=== PATIENT | female | born 1930 | race Caucasian/White ===

== ENCOUNTER 2018-01-22 18:05 | Inpatient (IN) | payer MEDICARE, OTHER, BC ==
[2018-01-22] MEDS: SODIUM CHLORIDE 0.9% 1L BAG IV* (20:44)
[2018-01-22] MEDS: morphine 4 MG/ML VIAL IV (20:44)
[2018-01-22] MEDS: ONDANSETRON 4 MG INJ IV (20:44)
[2018-01-22 20:55] LABS: ADD MAN DIFF? NO
[2018-01-22 20:57] LABS: BASOPHILS % 0.4 % (0.0-2.0); EOSINOPHILS # 0.1 10^3/ul (0.0-0.5); EOSINOPHILS % 1.3 % (0.0-7.0); HEMATOCRIT 35.9 % (37.0-47.0); HEMOGLOBIN 11.3 g/dl (12.0-16.0); LYMPHOCYTES # 2.8 10^3/ul (0.8-2.9); LYMPHOCYTES % 33.8 % (15.0-51.0); MEAN CORPUSCULAR HEMOGLOBIN 29.9 pg (29.0-33.0); MEAN CORPUSCULAR HGB CONC 31.5 g/dl (32.0-37.0); MEAN PLATELET VOLUME 12.4 fl (7.4-10.4); MONOCYTE # 0.8 10^3/ul (0.3-0.9); MONOCYTES % 9.3 % (0.0-11.0); NEUTROPHIL # 4.5 10^3/ul (1.6-7.5); PLATELET COUNT 183 10^3/UL (140-415); RED BLOOD COUNT 3.78 10^6/ul (4.20-5.40); RED CELL DISTRIBUTION WIDTH 14.7 % (11.5-14.5)
[2018-01-22 20:57] LABS: WHITE BLOOD COUNT 8.2 10^3/ul (4.8-10.8)
[2018-01-22 21:15] LABS: LACTIC ACID 1.1 mmol/L (0.5-2.0)
[2018-01-22 21:18] LABS: ALANINE AMINOTRANSFERASE 17 IU/L (13-69); ALBUMIN 4.1 g/dl (3.3-4.9); ALBUMIN/GLOBULIN RATIO 1.07; ALKALINE PHOSPHATASE 140 IU/L (42-121); ANION GAP 15 (8-16); ASPARTATE AMINO TRANSFERASE 24 IU/L (15-46); BILIRUBIN,INDIRECT 0.3 mg/dl (0-1.1); BILIRUBIN,TOTAL 0.3 mg/dl (0.2-1.3); BLOOD UREA NITROGEN 22 mg/dl (7-20); CALCIUM 8.6 mg/dl (8.4-10.2); CARBON DIOXIDE 27 mmol/L (21-31); CHLORIDE 99 mmol/L (97-110); CREATININE 1.17 mg/dl (0.44-1.00); GLUCOSE 108 mg/dl (70-220); LIPASE 141 U/L (23-300); POTASSIUM 4.1 mmol/L (3.5-5.1); SODIUM 137 mmol/L (135-144); TOTAL PROTEIN 7.9 g/dl (6.1-8.1)
[2018-01-22 21:26] LABS: INR 1.13; PROTIME 14.7 Sec (11.9-14.9); PT RATIO 1.1
[2018-01-22 21:27] LABS: PARTIAL THROMBOPLASTIN TIME 39.3 Sec (25.0-35.0); TROPONIN-I 0.017 ng/ml (0.00-0.12)
[2018-01-22] MEDS: SOD CHLORIDE 0.9% 100 ML (22:41)
[2018-01-22] MEDS: IODIXANOL LOCM 100 ML BTL (22:42)
[2018-01-22 23:17] LABS: LACTIC ACID 0.9 mmol/L (0.5-2.0)
[2018-01-23] MEDS ORDERED: ACETAMINOPHEN 325 MG TAB PO
[2018-01-23] MEDS ORDERED: ONDANSETRON 4 MG INJ IV
[2018-01-23 02:55] LABS: LACTIC ACID 0.7 mmol/L (0.5-2.0)
[2018-01-23 05:39] LABS: ADD MAN DIFF? NO
[2018-01-23 05:43] LABS: BASOPHILS % 0.3 % (0.0-2.0); EOSINOPHILS # 0.1 10^3/ul (0.0-0.5); EOSINOPHILS % 1.4 % (0.0-7.0); HEMOGLOBIN 9.9 g/dl (12.0-16.0); LYMPHOCYTES # 1.8 10^3/ul (0.8-2.9); LYMPHOCYTES % 27.6 % (15.0-51.0); MEAN CORPUSCULAR HEMOGLOBIN 30.5 pg (29.0-33.0); MEAN CORPUSCULAR HGB CONC 31.9 g/dl (32.0-37.0); MEAN CORPUSCULAR VOLUME 95.4 fl (82.0-101.0); MEAN PLATELET VOLUME 11.9 fl (7.4-10.4); MONOCYTE # 0.7 10^3/ul (0.3-0.9); MONOCYTES % 10.3 % (0.0-11.0); NEUTROPHILS % 59.9 % (39.0-77.0); RED BLOOD COUNT 3.25 10^6/ul (4.20-5.40); RED CELL DISTRIBUTION WIDTH 14.6 % (11.5-14.5)
[2018-01-23 05:43] LABS: WHITE BLOOD COUNT 6.6 10^3/ul (4.8-10.8)
[2018-01-23 05:54] LABS: PLATELET COUNT 134 10^3/UL (140-415); POSITIVE DIFF @See below
[2018-01-23 06:04] LABS: ALANINE AMINOTRANSFERASE 18 IU/L (13-69); ALBUMIN 3.3 g/dl (3.3-4.9); ALBUMIN/GLOBULIN RATIO 1.03; ALKALINE PHOSPHATASE 112 IU/L (42-121); ANION GAP 16 (8-16); ASPARTATE AMINO TRANSFERASE 22 IU/L (15-46); BILIRUBIN,INDIRECT 0.2 mg/dl (0-1.1); BILIRUBIN,TOTAL 0.2 mg/dl (0.2-1.3); BLOOD UREA NITROGEN 18 mg/dl (7-20); CALCIUM 7.8 mg/dl (8.4-10.2); CARBON DIOXIDE 22 mmol/L (21-31); CHLORIDE 108 mmol/L (97-110); CREATININE 0.99 mg/dl (0.44-1.00); GLUCOSE 72 mg/dl (70-220); POTASSIUM 3.8 mmol/L (3.5-5.1); SODIUM 142 mmol/L (135-144); TOTAL PROTEIN 6.5 g/dl (6.1-8.1)
[2018-01-23] MEDS: FUROSEMIDE 20 MG TAB PO (06:09)
[2018-01-23] MEDS: PANTOPRAZOLE (EC) 40 MG TAB PO (06:09)
[2018-01-23] MEDS: LEVOTHYROXINE 100 MCG TAB PO (06:10)
[2018-01-23] MEDS: LEVETIRACETAM 500 MG TAB PO ×4 (10:08→21:43)
[2018-01-23] MEDS: RALOXIFENE 60 MG TAB PO (10:08)
[2018-01-23] MEDS: ASPIRIN (EC) 81 MG TAB PO (10:08)
[2018-01-23] MEDS: PHENYTOIN (25 MG/ML PO SYG) PO ×3 (10:08→22:05)
[2018-01-23] MEDS: AMIODARONE 200 MG TAB PO (10:12)
[2018-01-23] MEDS: LISINOPRIL 10 MG TAB PO (10:12)
[2018-01-23] MEDS: morphine 2 MG INJ IV ×3 (13:25→22:03)
[2018-01-23] MEDS: ATORVASTATIN 10 MG TAB PO (21:43)
[2018-01-24] MEDS: morphine 2 MG INJ IV ×4 (06:25→20:30)
[2018-01-24] MEDS: PANTOPRAZOLE (EC) 40 MG TAB PO (06:26)
[2018-01-24] MEDS: LEVOTHYROXINE 100 MCG TAB PO (06:26)
[2018-01-24] MEDS: FUROSEMIDE 20 MG TAB PO (06:26)
[2018-01-24 06:48] LABS: PARTIAL THROMBOPLASTIN TIME 35.9 Sec (25.0-35.0)
[2018-01-24 07:20] LABS: CARCINOEMBRYONIC ANTIGEN 13.5 ng/ml (0.0-5.0)
[2018-01-24 09:23] LABS: IMMUNOGLOBULIN A 236 mg/dl (70-400); IMMUNOGLOBULIN G 1483 mg/dl (700-1600); IMMUNOGLOBULIN M 133 mg/dl (40-230)
[2018-01-24] MEDS: ASPIRIN (EC) 81 MG TAB PO (09:48)
[2018-01-24] MEDS: RALOXIFENE 60 MG TAB PO (09:48)
[2018-01-24] MEDS: LEVETIRACETAM 500 MG TAB PO ×4 (09:49→20:31)
[2018-01-24] MEDS: AMIODARONE 200 MG TAB PO (09:51)
[2018-01-24] MEDS: LISINOPRIL 10 MG TAB PO (09:51)
[2018-01-24] MEDS: PHENYTOIN (25 MG/ML PO SYG) PO ×3 (09:51→20:31)
[2018-01-24] MEDS: CEFTRIAXONE 1 GM/50 ML (PMX) 50 ML IVPB (16:27)
[2018-01-24] MEDS: ATORVASTATIN 10 MG TAB PO (20:31)
[2018-01-25] MEDS: FUROSEMIDE 20 MG TAB PO (05:46)
[2018-01-25] MEDS: PANTOPRAZOLE (EC) 40 MG TAB PO (05:46)
[2018-01-25] MEDS: LEVOTHYROXINE 100 MCG TAB PO (05:47)
[2018-01-25] MEDS: morphine 2 MG INJ IV ×4 (06:13→18:24)
[2018-01-25 07:01] LABS: PROTEIN, TOTAL 6.9 g/dL (6.1-8.1)
[2018-01-25] MEDS: LEVETIRACETAM 500 MG TAB PO ×4 (08:39→20:28)
[2018-01-25] MEDS: ASPIRIN (EC) 81 MG TAB PO (08:39)
[2018-01-25] MEDS: RALOXIFENE 60 MG TAB PO (08:40)
[2018-01-25] MEDS: PHENYTOIN (25 MG/ML PO SYG) PO ×3 (08:40→20:28)
[2018-01-25] MEDS: LISINOPRIL 10 MG TAB PO (08:42)
[2018-01-25] MEDS: AMIODARONE 200 MG TAB PO (08:43)
[2018-01-25] MEDS: CEFTRIAXONE 1 GM/50 ML (PMX) 50 ML IVPB (15:51)
[2018-01-25] MEDS: MAGNESIUM HYDROXIDE 30ML CUP PO (17:26)
[2018-01-25] MEDS: DOCUSATE SODIUM 100 MG CAP PO (20:28)
[2018-01-25] MEDS: ACETAMINOPHEN 325 MG TAB PO (20:28)
[2018-01-25] MEDS: ATORVASTATIN 10 MG TAB PO (20:28)
[2018-01-25] MEDS: DEXTROSE 5%-0.45% NACL 1,000 ML IV (21:30)
[2018-01-26] MEDS: HYDROCODONE/APAP (5/325) TAB PO ×3 (02:02→19:21)
[2018-01-26] MEDS: morphine 2 MG INJ IV ×4 (05:29→20:31)
[2018-01-26 05:35] LABS: ADD MAN DIFF? NO
[2018-01-26] MEDS: PANTOPRAZOLE (EC) 40 MG TAB PO (05:35)
[2018-01-26] MEDS: LEVOTHYROXINE 100 MCG TAB PO (05:36)
[2018-01-26] MEDS: FUROSEMIDE 20 MG TAB PO (05:36)
[2018-01-26 05:38] LABS: WHITE BLOOD COUNT 7.4 10^3/ul (4.8-10.8)
[2018-01-26 05:38] LABS: BASOPHILS % 0.1 % (0.0-2.0); EOSINOPHILS # 0.2 10^3/ul (0.0-0.5); EOSINOPHILS % 2.7 % (0.0-7.0); HEMATOCRIT 31.2 % (37.0-47.0); LYMPHOCYTES # 1.6 10^3/ul (0.8-2.9); LYMPHOCYTES % 21.2 % (15.0-51.0); MEAN CORPUSCULAR HEMOGLOBIN 30.1 pg (29.0-33.0); MEAN CORPUSCULAR HGB CONC 32.1 g/dl (32.0-37.0); MEAN PLATELET VOLUME 12.7 fl (7.4-10.4); MONOCYTE # 0.8 10^3/ul (0.3-0.9); MONOCYTES % 10.1 % (0.0-11.0); NEUTROPHIL # 4.8 10^3/ul (1.6-7.5); NEUTROPHILS % 65.5 % (39.0-77.0); PLATELET COUNT 143 10^3/UL (140-415); RED BLOOD COUNT 3.32 10^6/ul (4.20-5.40); RED CELL DISTRIBUTION WIDTH 14.3 % (11.5-14.5)
[2018-01-26 05:53] LABS: INR 1.32; PROTIME 16.6 Sec (11.9-14.9); PT RATIO 1.3
[2018-01-26 06:17] LABS: ANION GAP 14 (8-16); BLOOD UREA NITROGEN 25 mg/dl (7-20); CARBON DIOXIDE 27 mmol/L (21-31); CHLORIDE 102 mmol/L (97-110); CREATININE 1.02 mg/dl (0.44-1.00); GLUCOSE 125 mg/dl (70-220); POTASSIUM 4.1 mmol/L (3.5-5.1); SODIUM 139 mmol/L (135-144)
[2018-01-26] MEDS: DOCUSATE SODIUM 100 MG CAP PO ×2 (08:42→20:32)
[2018-01-26] MEDS: RALOXIFENE 60 MG TAB PO (08:43)
[2018-01-26] MEDS: LEVETIRACETAM 500 MG TAB PO ×4 (08:43→20:31)
[2018-01-26] MEDS: LISINOPRIL 10 MG TAB PO (08:44)
[2018-01-26] MEDS: PHENYTOIN (25 MG/ML PO SYG) PO ×3 (08:44→20:31)
[2018-01-26] MEDS: AMIODARONE 200 MG TAB PO (08:44)
[2018-01-26] MEDS: DEXTROSE 5%-0.45% NACL 1,000 ML IV ×2 (09:38→20:36)
[2018-01-26] MEDS: ASPIRIN (EC) 81 MG TAB PO (11:23)
[2018-01-26] MEDS: CEFTRIAXONE 1 GM/50 ML (PMX) 50 ML IVPB (15:44)
[2018-01-26 17:48] LABS: PARTIAL THROMBOPLASTIN TIME 37.1 Sec (25.0-35.0)
[2018-01-26] MEDS: ATORVASTATIN 10 MG TAB PO (20:32)
[2018-01-27] MEDS: HYDROCODONE/APAP (5/325) TAB PO ×2 (03:24→10:03)
[2018-01-27] MEDS: PANTOPRAZOLE (EC) 40 MG TAB PO (05:05)
[2018-01-27] MEDS: LEVOTHYROXINE 100 MCG TAB PO ×2 (05:05→10:01)
[2018-01-27] MEDS: FUROSEMIDE 20 MG TAB PO (05:05)
[2018-01-27] MEDS: ASPIRIN (EC) 81 MG TAB PO (09:00)
[2018-01-27] MEDS: LISINOPRIL 10 MG TAB PO (09:00)
[2018-01-27] MEDS: RALOXIFENE 60 MG TAB PO (09:00)
[2018-01-27] MEDS: DOCUSATE SODIUM 100 MG CAP PO ×2 (09:00→20:49)
[2018-01-27] MEDS: DEXTROSE 5%-0.45% NACL 1,000 ML IV (10:00)
[2018-01-27] MEDS: LEVETIRACETAM 500 MG TAB PO ×4 (10:01→20:49)
[2018-01-27] MEDS: AMIODARONE 200 MG TAB PO (10:03)
[2018-01-27] MEDS: PHENYTOIN (25 MG/ML PO SYG) PO ×3 (10:06→20:51)
[2018-01-27] MEDS: PROPOFOL 20 ML ×2 (13:23)
[2018-01-27] MEDS: FENTAnyl 50 MCG/ML VIAL (13:23)
[2018-01-27] MEDS ORDERED: LIDOCAINE 1% (MPF) 10 ML INJ (13:30)
[2018-01-27] MEDS: PHENYLephrine (100 MCG/ML) 5ML SYG (13:59)
[2018-01-27] MEDS: CEFTRIAXONE 1 GM/50 ML (PMX) 50 ML IVPB (16:00)
[2018-01-27] MEDS: morphine 2 MG INJ IV ×2 (16:00→22:22)
[2018-01-27 16:07] LABS: ALBUMIN 3.6 g/dL (3.8-4.8); ALPHA-1-GLOBULINS 0.4 g/dL (0.2-0.3); ALPHA-2-GLOBULINS 0.8 g/dL (0.5-0.9); BETA 2 GLOBULINS 0.3 g/dL (0.2-0.5); BETA GLOBULINS 0.3 g/dL (0.4-0.6); GAMMA GLOBULINS 1.5 g/dL (0.8-1.7)
[2018-01-27] MEDS: ATORVASTATIN 10 MG TAB PO (20:49)
[2018-01-28] MEDS: morphine 2 MG INJ IV ×6 (02:34→23:57)
[2018-01-28] MEDS: DEXTROSE 5%-0.45% NACL 1,000 ML IV ×3 (02:50→19:47)
[2018-01-28] MEDS: PANTOPRAZOLE (EC) 40 MG TAB PO (05:37)
[2018-01-28] MEDS: FUROSEMIDE 20 MG TAB PO (05:41)
[2018-01-28] MEDS: LEVOTHYROXINE 100 MCG TAB PO (05:42)
[2018-01-28] MEDS: HYDROCODONE/APAP (5/325) TAB PO ×3 (06:28→17:49)
[2018-01-28] MEDS: DOCUSATE SODIUM 100 MG CAP PO ×2 (08:34→20:40)
[2018-01-28] MEDS: LISINOPRIL 10 MG TAB PO (08:34)
[2018-01-28] MEDS: ASPIRIN (EC) 81 MG TAB PO (08:34)
[2018-01-28] MEDS: LEVETIRACETAM 500 MG TAB PO ×4 (08:34→20:42)
[2018-01-28] MEDS: RALOXIFENE 60 MG TAB PO (08:35)
[2018-01-28] MEDS: AMIODARONE 200 MG TAB PO (08:36)
[2018-01-28] MEDS: PHENYTOIN (25 MG/ML PO SYG) PO ×3 (10:41→20:43)
[2018-01-28] MEDS: CEFTRIAXONE 1 GM/50 ML (PMX) 50 ML IVPB (16:04)
[2018-01-28] MEDS: ATORVASTATIN 10 MG TAB PO (20:40)
[2018-01-29] MEDS: HYDROCODONE/APAP (5/325) TAB PO ×3 (01:30→18:07)
[2018-01-29 05:55] LABS: ADD MAN DIFF? NO
[2018-01-29 05:58] LABS: BASOPHILS % 0.3 % (0.0-2.0); EOSINOPHILS # 0.2 10^3/ul (0.0-0.5); EOSINOPHILS % 2.4 % (0.0-7.0); HEMATOCRIT 31.8 % (37.0-47.0); HEMOGLOBIN 10.1 g/dl (12.0-16.0); LYMPHOCYTES # 1.5 10^3/ul (0.8-2.9); LYMPHOCYTES % 22.4 % (15.0-51.0); MEAN CORPUSCULAR HEMOGLOBIN 30.3 pg (29.0-33.0); MEAN CORPUSCULAR HGB CONC 31.8 g/dl (32.0-37.0); MEAN CORPUSCULAR VOLUME 95.5 fl (82.0-101.0); MONOCYTE # 0.7 10^3/ul (0.3-0.9); MONOCYTES % 10.5 % (0.0-11.0); NEUTROPHIL # 4.3 10^3/ul (1.6-7.5); NEUTROPHILS % 64.1 % (39.0-77.0); PLATELET COUNT 144 10^3/UL (140-415); RED BLOOD COUNT 3.33 10^6/ul (4.20-5.40); RED CELL DISTRIBUTION WIDTH 14.2 % (11.5-14.5)
[2018-01-29 05:58] LABS: WHITE BLOOD COUNT 6.8 10^3/ul (4.8-10.8)
[2018-01-29] MEDS: morphine 2 MG INJ IV ×3 (06:09→16:53)
[2018-01-29] MEDS: LEVOTHYROXINE 100 MCG TAB PO (06:11)
[2018-01-29] MEDS: PANTOPRAZOLE (EC) 40 MG TAB PO (06:11)
[2018-01-29] MEDS: FUROSEMIDE 20 MG TAB PO (06:11)
[2018-01-29 06:19] LABS: PHENYTOIN (DILANTIN) 7.1 ug/ml (10.0-20.0)
[2018-01-29 06:25] LABS: ANION GAP 13 (8-16); BLOOD UREA NITROGEN 17 mg/dl (7-20); CALCIUM 8.2 mg/dl (8.4-10.2); CARBON DIOXIDE 26 mmol/L (21-31); CHLORIDE 106 mmol/L (97-110); CREATININE 0.73 mg/dl (0.44-1.00); GLUCOSE 95 mg/dl (70-220); POTASSIUM 4.2 mmol/L (3.5-5.1); SODIUM 141 mmol/L (135-144)
[2018-01-29] MEDS: DOCUSATE SODIUM 100 MG CAP PO ×2 (08:46→20:57)
[2018-01-29] MEDS: LEVETIRACETAM 500 MG TAB PO ×4 (08:46→20:58)
[2018-01-29] MEDS: ASPIRIN (EC) 81 MG TAB PO (08:47)
[2018-01-29] MEDS: LISINOPRIL 10 MG TAB PO (08:47)
[2018-01-29] MEDS: RALOXIFENE 60 MG TAB PO (08:47)
[2018-01-29] MEDS: PHENYTOIN (25 MG/ML PO SYG) PO ×3 (08:47→22:10)
[2018-01-29] MEDS: AMIODARONE 200 MG TAB PO (08:48)
[2018-01-29] MEDS: DEXTROSE 5%-0.45% NACL 1,000 ML IV (08:53)
[2018-01-29] MEDS: CEFTRIAXONE 1 GM/50 ML (PMX) 50 ML IVPB (16:52)
[2018-01-29] MEDS: ATORVASTATIN 10 MG TAB PO (20:56)
[2018-01-30] MEDS: HYDROCODONE/APAP (5/325) TAB PO ×3 (00:27→20:24)
[2018-01-30] MEDS: morphine 2 MG INJ IV ×2 (04:17→12:32)
[2018-01-30] MEDS: LEVOTHYROXINE 100 MCG TAB PO (05:49)
[2018-01-30] MEDS: PANTOPRAZOLE (EC) 40 MG TAB PO (05:49)
[2018-01-30] MEDS: FUROSEMIDE 20 MG TAB PO (05:50)
[2018-01-30] MEDS: DOCUSATE SODIUM 100 MG CAP PO ×2 (09:09→20:23)
[2018-01-30] MEDS: PHENYTOIN (25 MG/ML PO SYG) PO ×3 (09:09→20:26)
[2018-01-30] MEDS: LEVETIRACETAM 500 MG TAB PO ×4 (09:10→20:23)
[2018-01-30] MEDS: ASPIRIN (EC) 81 MG TAB PO (09:10)
[2018-01-30] MEDS: AMIODARONE 200 MG TAB PO (09:10)
[2018-01-30] MEDS: RALOXIFENE 60 MG TAB PO (09:10)
[2018-01-30] MEDS: LISINOPRIL 10 MG TAB PO (09:11)
[2018-01-30] MEDS: CEFTRIAXONE 1 GM/50 ML (PMX) 50 ML IVPB (16:36)
[2018-01-30] MEDS: morphine LIQ (20 MG/ML PO SYG) PO (16:36)
[2018-01-30] MEDS: ATORVASTATIN 10 MG TAB PO (20:23)
[2018-01-31] MEDS: morphine LIQ (20 MG/ML PO SYG) PO ×2 (01:40→08:11)
[2018-01-31] MEDS: PANTOPRAZOLE (EC) 40 MG TAB PO (06:21)
[2018-01-31] MEDS: LEVOTHYROXINE 100 MCG TAB PO (06:22)
[2018-01-31] MEDS: FUROSEMIDE 20 MG TAB PO (06:22)
[2018-01-31] MEDS: DOCUSATE SODIUM 100 MG CAP PO ×2 (09:31→20:48)
[2018-01-31] MEDS: RALOXIFENE 60 MG TAB PO (09:32)
[2018-01-31] MEDS: AMIODARONE 200 MG TAB PO (09:33)
[2018-01-31] MEDS: PHENYTOIN (25 MG/ML PO SYG) PO ×3 (09:34→20:48)
[2018-01-31] MEDS: LEVETIRACETAM 500 MG TAB PO ×4 (09:34→20:48)
[2018-01-31] MEDS: LISINOPRIL 10 MG TAB PO (09:34)
[2018-01-31] MEDS: ASPIRIN (EC) 81 MG TAB PO (09:34)
[2018-01-31] MEDS: morphine (ER) 30 MG TAB PO ×2 (09:41→20:48)
[2018-01-31] MEDS: HYDROCODONE/APAP (5/325) TAB PO (12:35)
[2018-01-31] MEDS: CEFTRIAXONE 1 GM/50 ML (PMX) 50 ML IVPB (16:07)
[2018-01-31] MEDS: ATORVASTATIN 10 MG TAB PO (20:48)
[2018-02-01] MEDS: LEVOTHYROXINE 100 MCG TAB PO (06:07)
[2018-02-01] MEDS: PANTOPRAZOLE (EC) 40 MG TAB PO (06:07)
[2018-02-01] MEDS: FUROSEMIDE 20 MG TAB PO (06:16)
[2018-02-01] MEDS: morphine (ER) 30 MG TAB PO ×3 (09:00→20:32)
[2018-02-01] MEDS: ASPIRIN (EC) 81 MG TAB PO (09:17)
[2018-02-01] MEDS: DOCUSATE SODIUM 100 MG CAP PO ×2 (09:17→20:31)
[2018-02-01] MEDS: LISINOPRIL 10 MG TAB PO (09:17)
[2018-02-01] MEDS: LEVETIRACETAM 500 MG TAB PO ×4 (09:17→20:32)
[2018-02-01] MEDS: PHENYTOIN (25 MG/ML PO SYG) PO ×3 (09:19→20:30)
[2018-02-01] MEDS: AMIODARONE 200 MG TAB PO (09:19)
[2018-02-01] MEDS: RALOXIFENE 60 MG TAB PO (10:14)
[2018-02-01] MEDS: CEFTRIAXONE 1 GM/50 ML (PMX) 50 ML IVPB (15:56)
[2018-02-01] MEDS: ATORVASTATIN 10 MG TAB PO (20:30)
[2018-02-01] MEDS: morphine LIQ (20 MG/ML PO SYG) PO (23:21)
[2018-02-02 05:46] LABS: ADD MAN DIFF? NO
[2018-02-02 05:48] LABS: ABNORMAL IP MESSAGE 1; BASOPHILS % 0.4 % (0.0-2.0); EOSINOPHILS # 0.1 10^3/ul (0.0-0.5); EOSINOPHILS % 1.4 % (0.0-7.0); LYMPHOCYTES % 23.4 % (15.0-51.0); MEAN CORPUSCULAR HEMOGLOBIN 30.1 pg (29.0-33.0); MEAN PLATELET VOLUME 13.3 fl (7.4-10.4); MONOCYTES % 12.4 % (0.0-11.0); NEUTROPHIL # 5.2 10^3/ul (1.6-7.5); PLATELET COUNT 184 10^3/UL (140-415); RED BLOOD COUNT 2.99 10^6/ul (4.20-5.40); RED CELL DISTRIBUTION WIDTH 14.5 % (11.5-14.5)
[2018-02-02 05:48] LABS: WHITE BLOOD COUNT 8.3 10^3/ul (4.8-10.8)
[2018-02-02 05:52] LABS: POSITIVE DIFF @See below
[2018-02-02] MEDS: PANTOPRAZOLE (EC) 40 MG TAB PO (06:12)
[2018-02-02] MEDS: FUROSEMIDE 20 MG TAB PO (06:13)
[2018-02-02] MEDS: LEVOTHYROXINE 100 MCG TAB PO (06:13)
[2018-02-02 06:26] LABS: ANION GAP 12 (8-16); BLOOD UREA NITROGEN 27 mg/dl (7-20); CALCIUM 8.2 mg/dl (8.4-10.2); CARBON DIOXIDE 33 mmol/L (21-31); CHLORIDE 101 mmol/L (97-110); CREATININE 1.03 mg/dl (0.44-1.00); GLUCOSE 91 mg/dl (70-220); POTASSIUM 4.6 mmol/L (3.5-5.1); SODIUM 141 mmol/L (135-144)
[2018-02-02] MEDS: DOCUSATE SODIUM 100 MG CAP PO ×2 (08:23→21:00)
[2018-02-02] MEDS: ASPIRIN (EC) 81 MG TAB PO (08:24)
[2018-02-02] MEDS: PHENYTOIN (25 MG/ML PO SYG) PO ×3 (08:24→21:00)
[2018-02-02] MEDS: LEVETIRACETAM 500 MG TAB PO ×4 (08:24→21:01)
[2018-02-02] MEDS: RALOXIFENE 60 MG TAB PO (08:24)
[2018-02-02] MEDS: LISINOPRIL 10 MG TAB PO (08:25)
[2018-02-02] MEDS: morphine (ER) 30 MG TAB PO ×2 (08:25→21:03)
[2018-02-02] MEDS: AMIODARONE 200 MG TAB PO (08:26)
[2018-02-02] MEDS: ZOLEDRONIC ACID 3 MG in SOD CHLORIDE 0.9% 100 ML IVPB (09:11)
[2018-02-02] MEDS: CEFTRIAXONE 1 GM/50 ML (PMX) 50 ML IVPB (15:43)
[2018-02-02] MEDS: ATORVASTATIN 10 MG TAB PO (21:00)
[2018-02-03] MEDS: SOD CHLORIDE 0.9% 1,000 ML IV ×2 (02:55→11:45)
[2018-02-03 05:17] LABS: ADD MAN DIFF? NO
[2018-02-03 05:20] LABS: WHITE BLOOD COUNT 11.7 10^3/ul (4.8-10.8)
[2018-02-03 05:20] LABS: BASOPHILS % 0.3 % (0.0-2.0); EOSINOPHILS % 0.1 % (0.0-7.0); HEMATOCRIT 30.9 % (37.0-47.0); HEMOGLOBIN 9.5 g/dl (12.0-16.0); LYMPHOCYTES # 1.6 10^3/ul (0.8-2.9); LYMPHOCYTES % 13.5 % (15.0-51.0); MEAN CORPUSCULAR HEMOGLOBIN 30.4 pg (29.0-33.0); MEAN CORPUSCULAR HGB CONC 30.7 g/dl (32.0-37.0); MEAN PLATELET VOLUME 12.2 fl (7.4-10.4); MONOCYTE # 0.9 10^3/ul (0.3-0.9); MONOCYTES % 7.9 % (0.0-11.0); NEUTROPHIL # 9.1 10^3/ul (1.6-7.5); NEUTROPHILS % 77.8 % (39.0-77.0); PLATELET COUNT 206 10^3/UL (140-415); RED BLOOD COUNT 3.12 10^6/ul (4.20-5.40); RED CELL DISTRIBUTION WIDTH 14.6 % (11.5-14.5)
[2018-02-03 05:34] LABS: ALANINE AMINOTRANSFERASE 430 IU/L (13-69); ALBUMIN 3.5 g/dl (3.3-4.9); ALBUMIN/GLOBULIN RATIO 0.97; ALKALINE PHOSPHATASE 111 IU/L (42-121); ANION GAP 17 (8-16); ASPARTATE AMINO TRANSFERASE 573 IU/L (15-46); BILIRUBIN,INDIRECT 0.1 mg/dl (0-1.1); BILIRUBIN,TOTAL 0.1 mg/dl (0.2-1.3); BLOOD UREA NITROGEN 31 mg/dl (7-20); CALCIUM 8.2 mg/dl (8.4-10.2); CARBON DIOXIDE 28 mmol/L (21-31); CHLORIDE 101 mmol/L (97-110); GLUCOSE 79 mg/dl (70-220); POTASSIUM 4.6 mmol/L (3.5-5.1); SODIUM 141 mmol/L (135-144); TOTAL PROTEIN 7.1 g/dl (6.1-8.1)
[2018-02-03] MEDS: FUROSEMIDE 20 MG TAB PO (06:00)
[2018-02-03] MEDS: PANTOPRAZOLE (EC) 40 MG TAB PO (06:11)
[2018-02-03] MEDS: LEVOTHYROXINE 100 MCG TAB PO (06:11)
[2018-02-03] MEDS: LISINOPRIL 10 MG TAB PO (09:00)
[2018-02-03] MEDS: RALOXIFENE 60 MG TAB PO (10:28)
[2018-02-03] MEDS: DOCUSATE SODIUM 100 MG CAP PO ×2 (10:28→21:51)
[2018-02-03] MEDS: LEVETIRACETAM 500 MG TAB PO ×4 (10:28→21:52)
[2018-02-03] MEDS: ASPIRIN (EC) 81 MG TAB PO (10:29)
[2018-02-03] MEDS: AMIODARONE 200 MG TAB PO (10:29)
[2018-02-03] MEDS: PHENYTOIN (25 MG/ML PO SYG) PO ×3 (10:31→21:51)
[2018-02-03] MEDS: ATORVASTATIN 10 MG TAB PO (21:52)
[2018-02-04] MEDS: SOD CHLORIDE 0.9% 1,000 ML IV ×2 (01:12→14:33)
[2018-02-04 05:35] LABS: ADD MAN DIFF? NO
[2018-02-04 05:42] LABS: WHITE BLOOD COUNT 9.6 10^3/ul (4.8-10.8)
[2018-02-04 05:42] LABS: BASOPHILS % 0.4 % (0.0-2.0); EOSINOPHILS # 0.2 10^3/ul (0.0-0.5); HEMATOCRIT 30.3 % (37.0-47.0); HEMOGLOBIN 9.3 g/dl (12.0-16.0); LYMPHOCYTES # 1.6 10^3/ul (0.8-2.9); LYMPHOCYTES % 16.5 % (15.0-51.0); MEAN CORPUSCULAR HEMOGLOBIN 30.4 pg (29.0-33.0); MEAN CORPUSCULAR HGB CONC 30.7 g/dl (32.0-37.0); MEAN PLATELET VOLUME 12.7 fl (7.4-10.4); MONOCYTE # 1.1 10^3/ul (0.3-0.9); MONOCYTES % 11.2 % (0.0-11.0); NEUTROPHIL # 6.7 10^3/ul (1.6-7.5); NEUTROPHILS % 69.5 % (39.0-77.0); PLATELET COUNT 185 10^3/UL (140-415); RED BLOOD COUNT 3.06 10^6/ul (4.20-5.40); RED CELL DISTRIBUTION WIDTH 14.8 % (11.5-14.5)
[2018-02-04 06:08] LABS: ALANINE AMINOTRANSFERASE 378 IU/L (13-69); ALBUMIN 3.3 g/dl (3.3-4.9); ALBUMIN/GLOBULIN RATIO 0.89; ALKALINE PHOSPHATASE 113 IU/L (42-121); ANION GAP 16 (8-16); ASPARTATE AMINO TRANSFERASE 372 IU/L (15-46); BILIRUBIN,INDIRECT 0.1 mg/dl (0-1.1); BILIRUBIN,TOTAL 0.1 mg/dl (0.2-1.3); BLOOD UREA NITROGEN 34 mg/dl (7-20); CALCIUM 7.5 mg/dl (8.4-10.2); CARBON DIOXIDE 23 mmol/L (21-31); CHLORIDE 107 mmol/L (97-110); CREATININE 1.06 mg/dl (0.44-1.00); GLUCOSE 106 mg/dl (70-220); POTASSIUM 4.2 mmol/L (3.5-5.1); SODIUM 142 mmol/L (135-144)
[2018-02-04] MEDS: LEVOTHYROXINE 100 MCG TAB PO (06:11)
[2018-02-04] MEDS: FUROSEMIDE 20 MG TAB PO (06:11)
[2018-02-04] MEDS: PANTOPRAZOLE (EC) 40 MG TAB PO (06:11)
[2018-02-04] MEDS: PHENYTOIN (25 MG/ML PO SYG) PO ×3 (08:15→21:03)
[2018-02-04] MEDS: RALOXIFENE 60 MG TAB PO (08:22)
[2018-02-04] MEDS: LEVETIRACETAM 500 MG TAB PO ×4 (08:23→21:07)
[2018-02-04] MEDS: ASPIRIN (EC) 81 MG TAB PO (08:23)
[2018-02-04] MEDS: DOCUSATE SODIUM 100 MG CAP PO ×2 (08:23→21:03)
[2018-02-04] MEDS: LISINOPRIL 10 MG TAB PO (08:25)
[2018-02-04] MEDS: AMIODARONE 200 MG TAB PO (08:25)
[2018-02-04] MEDS: ATORVASTATIN 10 MG TAB PO (21:03)
[2018-02-05] MEDS: HYDROCODONE/APAP (5/325) TAB PO (02:44)
[2018-02-05] MEDS ORDERED: VITAMIN A & D 5 GM OINT PACKET TOP (02:48)
[2018-02-05] MEDS: SOD CHLORIDE 0.9% 1,000 ML IV ×3 (03:21→23:00)
[2018-02-05 05:28] LABS: ADD MAN DIFF? NO
[2018-02-05 05:32] LABS: BASOPHILS % 0.5 % (0.0-2.0); EOSINOPHILS # 0.1 10^3/ul (0.0-0.5); EOSINOPHILS % 1.4 % (0.0-7.0); HEMATOCRIT 29.2 % (37.0-47.0); LYMPHOCYTES # 1.6 10^3/ul (0.8-2.9); LYMPHOCYTES % 18.6 % (15.0-51.0); MEAN CORPUSCULAR HEMOGLOBIN 30.5 pg (29.0-33.0); MEAN CORPUSCULAR HGB CONC 30.8 g/dl (32.0-37.0); MEAN PLATELET VOLUME 12.6 fl (7.4-10.4); MONOCYTE # 0.9 10^3/ul (0.3-0.9); MONOCYTES % 10.7 % (0.0-11.0); NEUTROPHILS % 68.2 % (39.0-77.0); PLATELET COUNT 172 10^3/UL (140-415); RED BLOOD COUNT 2.95 10^6/ul (4.20-5.40); RED CELL DISTRIBUTION WIDTH 14.6 % (11.5-14.5)
[2018-02-05 05:32] LABS: WHITE BLOOD COUNT 8.7 10^3/ul (4.8-10.8)
[2018-02-05] MEDS: PANTOPRAZOLE (EC) 40 MG TAB PO (05:49)
[2018-02-05] MEDS: FUROSEMIDE 20 MG TAB PO (05:49)
[2018-02-05] MEDS: LEVOTHYROXINE 100 MCG TAB PO (05:51)
[2018-02-05 05:52] LABS: ALANINE AMINOTRANSFERASE 423 IU/L (13-69); ALBUMIN 3.3 g/dl (3.3-4.9); ALBUMIN/GLOBULIN RATIO 0.97; ALKALINE PHOSPHATASE 110 IU/L (42-121); ANION GAP 14 (8-16); ASPARTATE AMINO TRANSFERASE 332 IU/L (15-46); BLOOD UREA NITROGEN 22 mg/dl (7-20); CALCIUM 7.2 mg/dl (8.4-10.2); CARBON DIOXIDE 25 mmol/L (21-31); CHLORIDE 108 mmol/L (97-110); CREATININE 0.85 mg/dl (0.44-1.00); GLUCOSE 83 mg/dl (70-220); POTASSIUM 3.9 mmol/L (3.5-5.1); SODIUM 143 mmol/L (135-144); TOTAL PROTEIN 6.7 g/dl (6.1-8.1)
[2018-02-05] MEDS: AMIODARONE 200 MG TAB PO (09:23)
[2018-02-05] MEDS: ASPIRIN (EC) 81 MG TAB PO (09:24)
[2018-02-05] MEDS: LISINOPRIL 10 MG TAB PO (09:24)
[2018-02-05] MEDS: DOCUSATE SODIUM 100 MG CAP PO ×2 (09:24→20:46)
[2018-02-05] MEDS: LEVETIRACETAM 500 MG TAB PO ×5 (09:24→20:46)
[2018-02-05] MEDS: PHENYTOIN (25 MG/ML PO SYG) PO ×3 (09:25→20:47)
[2018-02-05] MEDS: RALOXIFENE 60 MG TAB PO (09:25)
[2018-02-05] MEDS: ATORVASTATIN 10 MG TAB PO (20:46)
[2018-02-06 05:15] LABS: ADD MAN DIFF? NO
[2018-02-06 05:24] LABS: BASOPHIL # 0.1 10^3/ul (0.0-0.1); BASOPHILS % 0.6 % (0.0-2.0); EOSINOPHILS # 0.1 10^3/ul (0.0-0.5); EOSINOPHILS % 1.5 % (0.0-7.0); HEMOGLOBIN 9.3 g/dl (12.0-16.0); LYMPHOCYTES # 1.4 10^3/ul (0.8-2.9); LYMPHOCYTES % 16.5 % (15.0-51.0); MEAN CORPUSCULAR HEMOGLOBIN 30.2 pg (29.0-33.0); MEAN CORPUSCULAR VOLUME 97.4 fl (82.0-101.0); MEAN PLATELET VOLUME 12.9 fl (7.4-10.4); MONOCYTES % 11.3 % (0.0-11.0); NEUTROPHIL # 5.9 10^3/ul (1.6-7.5); NEUTROPHILS % 69.4 % (39.0-77.0); PLATELET COUNT 186 10^3/UL (140-415); RED BLOOD COUNT 3.08 10^6/ul (4.20-5.40); RED CELL DISTRIBUTION WIDTH 14.6 % (11.5-14.5)
[2018-02-06 05:24] LABS: WHITE BLOOD COUNT 8.4 10^3/ul (4.8-10.8)
[2018-02-06 05:42] LABS: ALANINE AMINOTRANSFERASE 296 IU/L (13-69); ALBUMIN 3.4 g/dl (3.3-4.9); ALKALINE PHOSPHATASE 112 IU/L (42-121); ANION GAP 14 (8-16); ASPARTATE AMINO TRANSFERASE 161 IU/L (15-46); BILIRUBIN,INDIRECT 0.1 mg/dl (0-1.1); BILIRUBIN,TOTAL 0.1 mg/dl (0.2-1.3); BLOOD UREA NITROGEN 16 mg/dl (7-20); CARBON DIOXIDE 27 mmol/L (21-31); CHLORIDE 108 mmol/L (97-110); GLUCOSE 113 mg/dl (70-220); POTASSIUM 4.1 mmol/L (3.5-5.1); SODIUM 145 mmol/L (135-144); TOTAL PROTEIN 6.8 g/dl (6.1-8.1)
[2018-02-06] MEDS: PANTOPRAZOLE (EC) 40 MG TAB PO (06:01)
[2018-02-06] MEDS: FUROSEMIDE 20 MG TAB PO (06:01)
[2018-02-06] MEDS: LEVOTHYROXINE 100 MCG TAB PO (06:01)
[2018-02-06] MEDS: DOCUSATE SODIUM 100 MG CAP PO ×2 (09:18→21:27)
[2018-02-06] MEDS: RALOXIFENE 60 MG TAB PO (09:18)
[2018-02-06] MEDS: LEVETIRACETAM 500 MG TAB PO ×4 (09:18→20:12)
[2018-02-06] MEDS: LISINOPRIL 10 MG TAB PO (09:18)
[2018-02-06] MEDS: AMIODARONE 200 MG TAB PO (09:19)
[2018-02-06] MEDS: ASPIRIN (EC) 81 MG TAB PO (09:20)
[2018-02-06] MEDS: PHENYTOIN (25 MG/ML PO SYG) PO ×3 (09:20→20:12)
[2018-02-06] MEDS: HYDROCODONE/APAP (5/325) TAB PO (11:12)
[2018-02-06] MEDS: FUROSEMIDE 40 MG INJ IV (11:12)
[2018-02-06] MEDS: LORAZEPAM 2 MG INJ IV (14:12)
[2018-02-06 15:42] LABS: ADD UMIC YES; UR ASCORBIC ACID NEGATIVE (NEGATIVE); UR BILIRUBIN (Dip) NEGATIVE (NEGATIVE); UR BLOOD (Dip) 1+ mg/dL (NEGATIVE); UR CLARITY CLEAR (CLEAR); UR COLOR STRAW (YELLOW); UR GLUCOSE (Dip) NEGATIVE (NEGATIVE); UR KETONES (Dip) NEGATIVE (NEGATIVE); UR LEUKOCYTE ESTERASE (Dip) 1+ Leu/ul (NEGATIVE); UR NITRITE (Dip) NEGATIVE (NEGATIVE); UR RBC 2 /HPF (0-5); UR SPECIFIC GRAVITY (Dip) 1.005 (1.003-1.030); UR TOTAL PROTEIN (Dip) NEGATIVE (NEGATIVE); UR UROBILINOGEN (Dip) NEGATIVE (NEGATIVE); UR WBC 17 /HPF (0-5)
[2018-02-06] MEDS: ATORVASTATIN 10 MG TAB PO (20:12)
[2018-02-07] MEDS: LORAZEPAM 2 MG INJ IV (01:15)
[2018-02-07 05:49] LABS: ADD MAN DIFF? NO
[2018-02-07 05:55] LABS: ABNORMAL IP MESSAGE 1; BASOPHILS % 0.4 % (0.0-2.0); EOSINOPHILS % 0.4 % (0.0-7.0); HEMATOCRIT 30.7 % (37.0-47.0); HEMOGLOBIN 9.6 g/dl (12.0-16.0); LYMPHOCYTES # 1.4 10^3/ul (0.8-2.9); LYMPHOCYTES % 13.4 % (15.0-51.0); MEAN CORPUSCULAR HEMOGLOBIN 30.2 pg (29.0-33.0); MEAN CORPUSCULAR HGB CONC 31.3 g/dl (32.0-37.0); MEAN CORPUSCULAR VOLUME 96.5 fl (82.0-101.0); MEAN PLATELET VOLUME 13.3 fl (7.4-10.4); MONOCYTE # 0.8 10^3/ul (0.3-0.9); MONOCYTES % 8.1 % (0.0-11.0); NEUTROPHIL # 7.8 10^3/ul (1.6-7.5); PLATELET COUNT 202 10^3/UL (140-415); RED BLOOD COUNT 3.18 10^6/ul (4.20-5.40); RED CELL DISTRIBUTION WIDTH 14.6 % (11.5-14.5)
[2018-02-07 05:55] LABS: WHITE BLOOD COUNT 10.1 10^3/ul (4.8-10.8)
[2018-02-07 06:01] LABS: POSITIVE DIFF @See below
[2018-02-07] MEDS: FUROSEMIDE 20 MG TAB PO (06:16)
[2018-02-07] MEDS: LEVOTHYROXINE 100 MCG TAB PO (06:17)
[2018-02-07] MEDS: PANTOPRAZOLE (EC) 40 MG TAB PO (06:17)
[2018-02-07 06:25] LABS: ALANINE AMINOTRANSFERASE 213 IU/L (13-69); ALBUMIN 3.4 g/dl (3.3-4.9); ALBUMIN/GLOBULIN RATIO 0.94; ALKALINE PHOSPHATASE 108 IU/L (42-121); ANION GAP 13 (8-16); ASPARTATE AMINO TRANSFERASE 89 IU/L (15-46); BLOOD UREA NITROGEN 15 mg/dl (7-20); CALCIUM 6.9 mg/dl (8.4-10.2); CARBON DIOXIDE 31 mmol/L (21-31); CHLORIDE 108 mmol/L (97-110); CREATININE 0.83 mg/dl (0.44-1.00); GLUCOSE 131 mg/dl (70-220); MAGNESIUM 2.1 mg/dl (1.7-2.5); POTASSIUM 3.3 mmol/L (3.5-5.1); SODIUM 149 mmol/L (135-144)
[2018-02-07] MEDS: AMIODARONE 200 MG TAB PO (08:24)
[2018-02-07] MEDS: PHENYTOIN (25 MG/ML PO SYG) PO ×3 (08:25→21:02)
[2018-02-07] MEDS: ASPIRIN (EC) 81 MG TAB PO (08:25)
[2018-02-07] MEDS: LEVETIRACETAM 500 MG TAB PO ×3 (08:25→20:58)
[2018-02-07] MEDS: LISINOPRIL 10 MG TAB PO (08:25)
[2018-02-07] MEDS: RALOXIFENE 60 MG TAB PO (08:25)
[2018-02-07] MEDS: DOCUSATE SODIUM 100 MG CAP PO ×2 (08:25→21:02)
[2018-02-07] MEDS: POTASSIUM CHLORIDE (SR) 20 MEQ TAB PO (14:26)
[2018-02-07] MEDS: CEFTRIAXONE 1 GM/50 ML (PMX) 50 ML IVPB (14:26)
[2018-02-07] MEDS: ATORVASTATIN 10 MG TAB PO (20:59)
[2018-02-07] MEDS: HYDROCODONE/APAP (5/325) TAB PO (21:02)
[2018-02-08 05:33] LABS: ADD MAN DIFF? NO
[2018-02-08 05:42] LABS: ABNORMAL IP MESSAGE 1; BASOPHILS % 0.4 % (0.0-2.0); EOSINOPHILS # 0.1 10^3/ul (0.0-0.5); EOSINOPHILS % 1.1 % (0.0-7.0); HEMATOCRIT 32.6 % (37.0-47.0); LYMPHOCYTES # 1.8 10^3/ul (0.8-2.9); LYMPHOCYTES % 18.1 % (15.0-51.0); MEAN CORPUSCULAR HEMOGLOBIN 29.9 pg (29.0-33.0); MEAN CORPUSCULAR HGB CONC 30.7 g/dl (32.0-37.0); MEAN CORPUSCULAR VOLUME 97.6 fl (82.0-101.0); MEAN PLATELET VOLUME 13.2 fl (7.4-10.4); MONOCYTE # 0.9 10^3/ul (0.3-0.9); MONOCYTES % 9.2 % (0.0-11.0); NEUTROPHIL # 6.8 10^3/ul (1.6-7.5); NEUTROPHILS % 70.4 % (39.0-77.0); PLATELET COUNT 166 10^3/UL (140-415); RED BLOOD COUNT 3.34 10^6/ul (4.20-5.40); RED CELL DISTRIBUTION WIDTH 14.8 % (11.5-14.5)
[2018-02-08 05:42] LABS: WHITE BLOOD COUNT 9.7 10^3/ul (4.8-10.8)
[2018-02-08 06:23] LABS: POSITIVE DIFF @See below
[2018-02-08 06:24] LABS: ALANINE AMINOTRANSFERASE 150 IU/L (13-69); ALBUMIN 3.3 g/dl (3.3-4.9); ALBUMIN/GLOBULIN RATIO 0.89; ALKALINE PHOSPHATASE 102 IU/L (42-121); ANION GAP 14 (8-16); ASPARTATE AMINO TRANSFERASE 53 IU/L (15-46); BILIRUBIN,INDIRECT 0.1 mg/dl (0-1.1); BILIRUBIN,TOTAL 0.1 mg/dl (0.2-1.3); BLOOD UREA NITROGEN 16 mg/dl (7-20); CALCIUM 6.8 mg/dl (8.4-10.2); CARBON DIOXIDE 29 mmol/L (21-31); CHLORIDE 105 mmol/L (97-110); CREATININE 0.78 mg/dl (0.44-1.00); GLUCOSE 126 mg/dl (70-220); MAGNESIUM 2.1 mg/dl (1.7-2.5); POTASSIUM 4.2 mmol/L (3.5-5.1); SODIUM 144 mmol/L (135-144)
[2018-02-08 06:32] LABS: PHENYTOIN (DILANTIN) 6.9 ug/ml (10.0-20.0)
[2018-02-08] MEDS: PANTOPRAZOLE (EC) 40 MG TAB PO (06:55)
[2018-02-08] MEDS: LEVOTHYROXINE 100 MCG TAB PO (06:55)
[2018-02-08] MEDS: FUROSEMIDE 20 MG TAB PO (06:56)
[2018-02-08] MEDS: LISINOPRIL 10 MG TAB PO (08:21)
[2018-02-08] MEDS: ASPIRIN (EC) 81 MG TAB PO (08:21)
[2018-02-08] MEDS: DOCUSATE SODIUM 100 MG CAP PO ×2 (08:21→20:51)
[2018-02-08] MEDS: LEVETIRACETAM 500 MG TAB PO ×2 (08:21→20:51)
[2018-02-08] MEDS: RALOXIFENE 60 MG TAB PO (08:22)
[2018-02-08] MEDS: AMIODARONE 200 MG TAB PO (08:22)
[2018-02-08] MEDS: PHENYTOIN (25 MG/ML PO SYG) PO ×3 (08:24→20:51)
[2018-02-08] MEDS: CEFTRIAXONE 1 GM/50 ML (PMX) 50 ML IVPB (15:50)
[2018-02-08] MEDS: ATORVASTATIN 10 MG TAB PO (20:51)
[2018-02-08] MEDS: ACETAMINOPHEN 325 MG TAB PO (21:39)
[2018-02-09 05:15] LABS: ADD MAN DIFF? NO
[2018-02-09 05:22] LABS: WHITE BLOOD COUNT 11.1 10^3/ul (4.8-10.8)
[2018-02-09 05:22] LABS: BASOPHIL # 0.1 10^3/ul (0.0-0.1); BASOPHILS % 0.5 % (0.0-2.0); EOSINOPHILS # 0.2 10^3/ul (0.0-0.5); EOSINOPHILS % 1.7 % (0.0-7.0); HEMATOCRIT 37.6 % (37.0-47.0); HEMOGLOBIN 11.6 g/dl (12.0-16.0); LYMPHOCYTES # 1.5 10^3/ul (0.8-2.9); LYMPHOCYTES % 13.7 % (15.0-51.0); MEAN CORPUSCULAR HEMOGLOBIN 30.1 pg (29.0-33.0); MEAN CORPUSCULAR HGB CONC 30.9 g/dl (32.0-37.0); MEAN CORPUSCULAR VOLUME 97.7 fl (82.0-101.0); MEAN PLATELET VOLUME 12.4 fl (7.4-10.4); MONOCYTES % 8.9 % (0.0-11.0); NEUTROPHIL # 8.2 10^3/ul (1.6-7.5); NEUTROPHILS % 74.3 % (39.0-77.0); PLATELET COUNT 207 10^3/UL (140-415); RED BLOOD COUNT 3.85 10^6/ul (4.20-5.40); RED CELL DISTRIBUTION WIDTH 15.2 % (11.5-14.5)
[2018-02-09 06:05] LABS: ALANINE AMINOTRANSFERASE 130 IU/L (13-69); ALBUMIN 3.7 g/dl (3.3-4.9); ALBUMIN/GLOBULIN RATIO 0.94; ALKALINE PHOSPHATASE 121 IU/L (42-121); ANION GAP 14 (8-16); ASPARTATE AMINO TRANSFERASE 44 IU/L (15-46); BLOOD UREA NITROGEN 15 mg/dl (7-20); CALCIUM 7.3 mg/dl (8.4-10.2); CARBON DIOXIDE 31 mmol/L (21-31); CHLORIDE 106 mmol/L (97-110); CREATININE 0.86 mg/dl (0.44-1.00); GLUCOSE 111 mg/dl (70-220); MAGNESIUM 2.2 mg/dl (1.7-2.5); POTASSIUM 4.3 mmol/L (3.5-5.1); SODIUM 147 mmol/L (135-144); TOTAL PROTEIN 7.6 g/dl (6.1-8.1)
[2018-02-09] MEDS: LEVOTHYROXINE 100 MCG TAB PO (06:06)
[2018-02-09] MEDS: FUROSEMIDE 20 MG TAB PO (06:06)
[2018-02-09] MEDS: PANTOPRAZOLE (EC) 40 MG TAB PO (06:06)
[2018-02-09] MEDS: ASPIRIN (EC) 81 MG TAB PO (08:56)
[2018-02-09] MEDS: RALOXIFENE 60 MG TAB PO (08:56)
[2018-02-09] MEDS: PHENYTOIN (25 MG/ML PO SYG) PO ×3 (08:56→20:49)
[2018-02-09] MEDS: DOCUSATE SODIUM 100 MG CAP PO ×2 (08:59→20:47)
[2018-02-09] MEDS: HYDROCODONE/APAP (5/325) TAB PO (08:59)
[2018-02-09] MEDS: LEVETIRACETAM 500 MG TAB PO ×2 (08:59→20:47)
[2018-02-09] MEDS: AMIODARONE 200 MG TAB PO (08:59)
[2018-02-09] MEDS: LISINOPRIL 10 MG TAB PO (09:00)
[2018-02-09] MEDS: ATORVASTATIN 10 MG TAB PO (20:47)
[2018-02-09] MEDS: traZODone 50 MG TAB PO (22:10)
[2018-02-10 05:27] LABS: ADD MAN DIFF? NO
[2018-02-10 05:33] LABS: WHITE BLOOD COUNT 11.4 10^3/ul (4.8-10.8)
[2018-02-10 05:33] LABS: ABNORMAL IP MESSAGE 1; BASOPHIL # 0.1 10^3/ul (0.0-0.1); BASOPHILS % 0.6 % (0.0-2.0); EOSINOPHILS # 0.2 10^3/ul (0.0-0.5); EOSINOPHILS % 1.8 % (0.0-7.0); HEMATOCRIT 36.2 % (37.0-47.0); HEMOGLOBIN 11.2 g/dl (12.0-16.0); LYMPHOCYTES # 1.7 10^3/ul (0.8-2.9); LYMPHOCYTES % 14.5 % (15.0-51.0); MEAN CORPUSCULAR HEMOGLOBIN 30.4 pg (29.0-33.0); MEAN CORPUSCULAR HGB CONC 30.9 g/dl (32.0-37.0); MEAN CORPUSCULAR VOLUME 98.1 fl (82.0-101.0); MEAN PLATELET VOLUME 13.3 fl (7.4-10.4); MONOCYTE # 1.1 10^3/ul (0.3-0.9); MONOCYTES % 9.5 % (0.0-11.0); NEUTROPHIL # 8.3 10^3/ul (1.6-7.5); NEUTROPHILS % 72.6 % (39.0-77.0); PLATELET COUNT 209 10^3/UL (140-415); RED BLOOD COUNT 3.69 10^6/ul (4.20-5.40); RED CELL DISTRIBUTION WIDTH 15.2 % (11.5-14.5)
[2018-02-10] MEDS: PANTOPRAZOLE (EC) 40 MG TAB PO (05:43)
[2018-02-10] MEDS: LEVOTHYROXINE 100 MCG TAB PO (05:43)
[2018-02-10] MEDS: FUROSEMIDE 20 MG TAB PO (05:47)
[2018-02-10 05:59] LABS: ALANINE AMINOTRANSFERASE 99 IU/L (13-69); ALBUMIN 3.4 g/dl (3.3-4.9); ALBUMIN/GLOBULIN RATIO 0.89; ALKALINE PHOSPHATASE 113 IU/L (42-121); ANION GAP 14 (8-16); ASPARTATE AMINO TRANSFERASE 33 IU/L (15-46); BILIRUBIN,INDIRECT 0.1 mg/dl (0-1.1); BILIRUBIN,TOTAL 0.1 mg/dl (0.2-1.3); BLOOD UREA NITROGEN 15 mg/dl (7-20); CARBON DIOXIDE 27 mmol/L (21-31); CHLORIDE 105 mmol/L (97-110); CREATININE 0.82 mg/dl (0.44-1.00); GLUCOSE 97 mg/dl (70-220); POTASSIUM 3.9 mmol/L (3.5-5.1); SODIUM 142 mmol/L (135-144); TOTAL PROTEIN 7.2 g/dl (6.1-8.1)
[2018-02-10 06:07] LABS: POSITIVE DIFF @See below
[2018-02-10] MEDS: ASPIRIN (EC) 81 MG TAB PO (08:14)
[2018-02-10] MEDS: RALOXIFENE 60 MG TAB PO (08:14)
[2018-02-10] MEDS: LEVETIRACETAM 500 MG TAB PO ×2 (08:14→21:24)
[2018-02-10] MEDS: LISINOPRIL 10 MG TAB PO (08:15)
[2018-02-10] MEDS: AMIODARONE 200 MG TAB PO (08:15)
[2018-02-10] MEDS: DOCUSATE SODIUM 100 MG CAP PO ×2 (08:16→21:24)
[2018-02-10] MEDS: PHENYTOIN (25 MG/ML PO SYG) PO ×3 (10:43→21:24)
[2018-02-10] MEDS: ATORVASTATIN 10 MG TAB PO (21:24)
[2018-02-11] MEDS: PANTOPRAZOLE (EC) 40 MG TAB PO (06:00)
[2018-02-11] MEDS: FUROSEMIDE 20 MG TAB PO (06:00)
[2018-02-11] MEDS: LEVOTHYROXINE 100 MCG TAB PO (06:34)
[2018-02-11] MEDS: PHENYTOIN (25 MG/ML PO SYG) PO (09:27)
[2018-02-11] MEDS: LEVETIRACETAM 500 MG TAB PO (09:27)
[2018-02-11] MEDS: AMIODARONE 200 MG TAB PO (09:28)
[2018-02-11] MEDS: ASPIRIN (EC) 81 MG TAB PO (09:28)
[2018-02-11] MEDS: LISINOPRIL 10 MG TAB PO (09:28)
[2018-02-11] MEDS: RALOXIFENE 60 MG TAB PO (09:28)
== END 2018-02-11 11:00 | disposition home or self-care (01) | DRG 542 ==
LOC: MS1 23:37 → E/R 18:05
PROC: 0WB83ZX Excision of Chest Wall, Percutaneous Approach, Diagnostic (ICD-10-PCS; principal; 2018-01-27)
DX: C79.51 Secondary malignant neoplasm of bone (principal); G93.41 Metabolic encephalopathy; C34.91 Malignant neoplasm of unspecified part of right bronchus or lung; D68.62 Lupus anticoagulant syndrome; E87.0 Hyperosmolality and hypernatremia; J90 Pleural effusion, not elsewhere classified; N39.0 Urinary tract infection, site not specified; I47.1 Supraventricular tachycardia; D32.9 Benign neoplasm of meninges, unspecified; E86.9 Volume depletion, unspecified; E87.6 Hypokalemia; E03.9 Hypothyroidism, unspecified; G89.3 Neoplasm related pain (acute) (chronic); G40.909 Epilepsy, unspecified, not intractable, without status epilepticus; H54.8 Legal blindness, as defined in USA; I25.10 Atherosclerotic heart disease of native coronary artery without angina pectoris; I73.9 Peripheral vascular disease, unspecified; I50.9 Heart failure, unspecified; I95.9 Hypotension, unspecified; J44.9 Chronic obstructive pulmonary disease, unspecified; Z86.73 Personal history of transient ischemic attack (TIA), and cerebral infarction without residual deficits; I25.2 Old myocardial infarction; Z95.5 Presence of coronary angioplasty implant and graft; Z95.810 Presence of automatic (implantable) cardiac defibrillator; Z66 Do not resuscitate; Z87.891 Personal history of nicotine dependence
CPT/HCPCS: 36415; 71045; 71275; 77012; 80048; 80053; 80185; 81001; 82378; 82784; 83605; 83690; 83735; 84155; 84165; 84484; 85025; 85335; 85610; 85730; 86320; 87040; 87086; 88307; 88313; 93005; 96361; 96374; 96375; 99285-25; J3487

== ENCOUNTER 2018-08-22 13:25 | Inpatient (IN) | payer BC, MEDICARE, OTHER ==
[2018-08-22 13:43] LABS: ADD MAN DIFF? NO
[2018-08-22 13:47] LABS: BASOPHILS % 0.2 % (0.0-2.0); EOSINOPHILS % 0.1 % (0.0-7.0); HEMATOCRIT 35.1 % (37.0-47.0); LYMPHOCYTES # 1.3 10^3/ul (0.8-2.9); LYMPHOCYTES % 8.9 % (15.0-51.0); MEAN CORPUSCULAR HEMOGLOBIN 30.5 pg (29.0-33.0); MEAN CORPUSCULAR HGB CONC 31.3 g/dl (32.0-37.0); MEAN CORPUSCULAR VOLUME 97.2 fl (82.0-101.0); MEAN PLATELET VOLUME 11.9 fl (7.4-10.4); MONOCYTE # 0.7 10^3/ul (0.3-0.9); NEUTROPHIL # 12.4 10^3/ul (1.6-7.5); NEUTROPHILS % 85.3 % (39.0-77.0); PLATELET COUNT 152 10^3/UL (140-415); RED BLOOD COUNT 3.61 10^6/ul (4.20-5.40); RED CELL DISTRIBUTION WIDTH 14.3 % (11.5-14.5)
[2018-08-22 13:47] LABS: WHITE BLOOD COUNT 14.5 10^3/ul (4.8-10.8)
[2018-08-22 14:09] LABS: ALANINE AMINOTRANSFERASE 23 IU/L (13-69); ALBUMIN 4.1 g/dl (3.3-4.9); ALBUMIN/GLOBULIN RATIO 1.17; ALKALINE PHOSPHATASE 114 IU/L (42-121); ANION GAP 9 (5-13); ASPARTATE AMINO TRANSFERASE 25 IU/L (15-46); BILIRUBIN,INDIRECT 0.4 mg/dl (0-1.1); BILIRUBIN,TOTAL 0.4 mg/dl (0.2-1.3); BLOOD UREA NITROGEN 25 mg/dl (7-20); CALCIUM 8.4 mg/dl (8.4-10.2); CARBON DIOXIDE 27 mmol/L (21-31); CHLORIDE 104 mmol/L (97-110); CREATININE 0.95 mg/dl (0.44-1.00); GLUCOSE 110 mg/dl (70-220); PHENYTOIN (DILANTIN) 15.2 ug/ml (10.0-20.0); SODIUM 140 mmol/L (135-144); TOTAL PROTEIN 7.6 g/dl (6.1-8.1)
[2018-08-22 14:10] LABS: POTASSIUM 4.7 mmol/L (3.5-5.1)
[2018-08-22] MEDS: LORAZEPAM 2 MG INJ IV (14:32)
[2018-08-22] MEDS: LEVETIRACETAM 500 MG (PMX) 100 ML IVPB (14:39)
[2018-08-22 15:10] LABS: TROPONIN-I 0.014 ng/ml (0.000-0.120)
[2018-08-22 15:15] LABS: LACTIC ACID 1.1 mmol/L (0.5-2.0)
[2018-08-22 15:30] LABS: ADD UMIC YES; UR ASCORBIC ACID NEGATIVE (NEGATIVE); UR BACTERIA FEW /HPF (NONE SEEN); UR BILIRUBIN (Dip) NEGATIVE (NEGATIVE); UR BLOOD (Dip) NEGATIVE (NEGATIVE); UR CLARITY CLOUDY (CLEAR); UR COLOR YELLOW (YELLOW); UR GLUCOSE (Dip) NEGATIVE (NEGATIVE); UR KETONES (Dip) NEGATIVE (NEGATIVE); UR LEUKOCYTE ESTERASE (Dip) 3+ Leu/ul (NEGATIVE); UR NITRITE (Dip) NEGATIVE (NEGATIVE); UR RBC 9 /HPF (0-5); UR SPECIFIC GRAVITY (Dip) 1.012 (1.003-1.030); UR SQUAMOUS EPITHELIAL CELL FEW /HPF (FEW); UR TOTAL PROTEIN (Dip) 1+ mg/dl (NEGATIVE); UR UROBILINOGEN (Dip) NEGATIVE (NEGATIVE); UR WBC > 182 /HPF (0-5)
[2018-08-22] MEDS: CEFEPIME 2GM/50 ML (PMX) 50 ML IVPB (15:48)
[2018-08-22] MEDS: SODIUM CHLORIDE 0.9% 1L BAG IV* (15:48)
[2018-08-22] MEDS: ACETAMINOPHEN 650 MG SUPP PR (15:49)
[2018-08-22] MEDS ORDERED: ACETAMINOPHEN 325 MG TAB PO (16:30)
[2018-08-22] MEDS ORDERED: ONDANSETRON 4 MG INJ IV (16:30)
[2018-08-22] MEDS: VANCOMYCIN 1 GM (PMX) 250 ML IVPB (16:51)
[2018-08-22 19:23] LABS: LACTIC ACID 0.9 mmol/L (0.5-2.0)
[2018-08-22] MEDS: SOD CHLORIDE 0.45% 1,000 ML IV (20:22)
[2018-08-22] MEDS: CEFTRIAXONE 1 GM/50 ML (PMX) 50 ML IVPB (20:22)
[2018-08-22] MEDS: ATORVASTATIN 10 MG TAB PO (20:29)
[2018-08-22] MEDS: traZODone 50 MG TAB PO (20:29)
[2018-08-22] MEDS: LEVETIRACETAM 500 MG TAB PO (20:33)
[2018-08-22] MEDS ORDERED: LEVETIRACETAM 500 MG TAB PO (21:00)
[2018-08-22] MEDS ORDERED: traZODone 50 MG TAB PO (21:00)
[2018-08-22] MEDS: PHENYTOIN (25 MG/ML PO SYG) PO (21:42)
[2018-08-23] MEDS: LEVOTHYROXINE 100 MCG TAB PO (08:23)
[2018-08-23] MEDS: LEVETIRACETAM 500 MG TAB PO ×2 (08:24→20:32)
[2018-08-23] MEDS: PHENYTOIN (25 MG/ML PO SYG) PO ×3 (08:24→20:32)
[2018-08-23] MEDS: ASPIRIN (EC) 81 MG TAB PO (08:24)
[2018-08-23] MEDS: FUROSEMIDE 20 MG TAB PO (08:25)
[2018-08-23] MEDS: AMIODARONE 200 MG TAB PO (08:29)
[2018-08-23] MEDS: SOD CHLORIDE 0.45% 1,000 ML IV (09:55)
[2018-08-23] MEDS ORDERED: VANCOMYCIN IV PER PHARMACY XX (15:30)
[2018-08-23] MEDS: VANCOMYCIN 750 MG in SOD CHLORIDE 0.9% 150 ML IVPB (17:35)
[2018-08-23] MEDS: traZODone 50 MG TAB PO (20:31)
[2018-08-23] MEDS: ATORVASTATIN 10 MG TAB PO (20:31)
[2018-08-23] MEDS: CEFTRIAXONE 1 GM/50 ML (PMX) 50 ML IVPB (20:32)
[2018-08-24] MEDS: SOD CHLORIDE 0.45% 1,000 ML IV (03:33)
[2018-08-24 05:43] LABS: ABNORMAL IP MESSAGE 1; HEMATOCRIT 30.5 % (37.0-47.0); HEMOGLOBIN 9.5 g/dl (12.0-16.0); MEAN CORPUSCULAR HEMOGLOBIN 30.6 pg (29.0-33.0); MEAN CORPUSCULAR HGB CONC 31.1 g/dl (32.0-37.0); MEAN CORPUSCULAR VOLUME 98.4 fl (82.0-101.0); MEAN PLATELET VOLUME 12.7 fl (7.4-10.4); PLATELET COUNT 71 10^3/UL (140-415); RED CELL DISTRIBUTION WIDTH 14.7 % (11.5-14.5)
[2018-08-24 05:43] LABS: WHITE BLOOD COUNT 6.9 10^3/ul (4.8-10.8)
[2018-08-24 06:05] LABS: POSITIVE DIFF @See below
[2018-08-24 06:06] LABS: ADD MAN DIFF? YES
[2018-08-24] MEDS: LEVOTHYROXINE 100 MCG TAB PO (06:14)
[2018-08-24 06:20] LABS: ANION GAP 9 (5-13); BLOOD UREA NITROGEN 17 mg/dl (7-20); CALCIUM 7.3 mg/dl (8.4-10.2); CARBON DIOXIDE 20 mmol/L (21-31); CHLORIDE 112 mmol/L (97-110); CREATININE 0.79 mg/dl (0.44-1.00); GLUCOSE 74 mg/dl (70-220); POTASSIUM 3.8 mmol/L (3.5-5.1); SODIUM 141 mmol/L (135-144)
[2018-08-24 07:51] LABS: ANISOCYTOSIS 1+ (0-0); BAND NEUTROPHILS #M 1.1 10^3/ul (0.0-0.6); BAND NEUTROPHILS % (M) 16 % (0-4); BURR CELLS 1+ (0-0); EOSINOPHILS % (M) 1 % (0-7); LYMPHOCYTES #M 0.4 10^3/ul (0.8-2.9); LYMPHOCYTES % (M) 7 % (15-51); MONOCYTE #M 0.6 10^3/ul (0.3-0.9); MONOCYTES % (M) 9 % (0-11); PLATELET ESTIMATE DECREASED; POIKILOCYTOSIS 3+ (0-0); POLYCHROMASIA 1+ (0-0); SCHISTOCYTES 1+ (0-0); SEG NEUT #M 4.7 10^3/ul (1.6-7.5); SEGMENTED NEUTROPHILS (M) % 67 % (39-77); SMUDGE%M 7 % (0-0)
[2018-08-24] MEDS: ASPIRIN (EC) 81 MG TAB PO (08:38)
[2018-08-24] MEDS: PHENYTOIN (25 MG/ML PO SYG) PO ×3 (08:38→20:33)
[2018-08-24] MEDS: LEVETIRACETAM 500 MG TAB PO ×2 (08:38→20:33)
[2018-08-24] MEDS: FUROSEMIDE 20 MG TAB PO (08:39)
[2018-08-24] MEDS: AMIODARONE 200 MG TAB PO (08:39)
[2018-08-24] MEDS: VANCOMYCIN 750 MG in SOD CHLORIDE 0.9% 150 ML IVPB (17:34)
[2018-08-24] MEDS: traZODone 50 MG TAB PO (20:33)
[2018-08-24] MEDS: CEFTRIAXONE 1 GM/50 ML (PMX) 50 ML IVPB (20:33)
[2018-08-24] MEDS: ATORVASTATIN 10 MG TAB PO (20:33)
[2018-08-25 06:19] LABS: ADD MAN DIFF? NO
[2018-08-25 06:38] LABS: ABNORMAL IP MESSAGE 1; BASOPHILS % 0.5 % (0.0-2.0); EOSINOPHILS # 0.3 10^3/ul (0.0-0.5); EOSINOPHILS % 4.4 % (0.0-7.0); HEMATOCRIT 34.1 % (37.0-47.0); HEMOGLOBIN 10.5 g/dl (12.0-16.0); LYMPHOCYTES # 1.2 10^3/ul (0.8-2.9); LYMPHOCYTES % 19.1 % (15.0-51.0); MEAN CORPUSCULAR HEMOGLOBIN 30.2 pg (29.0-33.0); MEAN CORPUSCULAR HGB CONC 30.8 g/dl (32.0-37.0); MEAN PLATELET VOLUME 13.3 fl (7.4-10.4); MONOCYTE # 0.7 10^3/ul (0.3-0.9); MONOCYTES % 10.8 % (0.0-11.0); NEUTROPHILS % 64.7 % (39.0-77.0); PLATELET COUNT 84 10^3/UL (140-415); RED BLOOD COUNT 3.48 10^6/ul (4.20-5.40); RED CELL DISTRIBUTION WIDTH 14.6 % (11.5-14.5)
[2018-08-25 06:38] LABS: WHITE BLOOD COUNT 6.1 10^3/ul (4.8-10.8)
[2018-08-25 06:41] LABS: POSITIVE DIFF @See below
[2018-08-25 07:01] LABS: ANION GAP 9 (5-13); BLOOD UREA NITROGEN 14 mg/dl (7-20); CALCIUM 7.4 mg/dl (8.4-10.2); CARBON DIOXIDE 23 mmol/L (21-31); CHLORIDE 112 mmol/L (97-110); CREATININE 0.77 mg/dl (0.44-1.00); GLUCOSE 84 mg/dl (70-220); SODIUM 144 mmol/L (135-144)
[2018-08-25] MEDS: LEVOTHYROXINE 100 MCG TAB PO (07:06)
[2018-08-25] MEDS: LORAZEPAM 0.5 MG TAB PO (08:29)
[2018-08-25] MEDS: PHENYTOIN (25 MG/ML PO SYG) PO ×3 (08:29→20:16)
[2018-08-25] MEDS: AMIODARONE 200 MG TAB PO (08:30)
[2018-08-25] MEDS: LEVETIRACETAM 500 MG TAB PO ×2 (08:31→20:16)
[2018-08-25] MEDS: FUROSEMIDE 20 MG TAB PO (08:31)
[2018-08-25] MEDS: ASPIRIN (EC) 81 MG TAB PO (08:34)
[2018-08-25 09:56] LABS: B-TYPE NATRIURETIC PEPTIDE 31600 PG/ML (0-450)
[2018-08-25 09:56] LABS: TROPONIN-I 0.023 ng/ml (0.000-0.120)
[2018-08-25 17:15] LABS: VANCOMYCIN,TROUGH 12.1 ug/ml (10.0-20.0)
[2018-08-25] MEDS ORDERED: VANCOMYCIN 1 GM 250 ML IVPB (18:00)
[2018-08-25] MEDS: VANCOMYCIN 750 MG in SOD CHLORIDE 0.9% 150 ML IVPB (18:23)
[2018-08-25] MEDS: CEFTRIAXONE 1 GM/50 ML (PMX) 50 ML IVPB (20:07)
[2018-08-25] MEDS: FUROSEMIDE 40 MG INJ IV (20:11)
[2018-08-25] MEDS: traZODone 50 MG TAB PO (20:11)
[2018-08-25] MEDS: ATORVASTATIN 10 MG TAB PO (20:16)
[2018-08-26] MEDS: LEVOTHYROXINE 50 MCG TAB PO (05:54)
[2018-08-26 06:05] LABS: ADD MAN DIFF? NO
[2018-08-26 06:09] LABS: ABNORMAL IP MESSAGE 1; BASOPHILS % 0.5 % (0.0-2.0); EOSINOPHILS # 0.3 10^3/ul (0.0-0.5); EOSINOPHILS % 3.7 % (0.0-7.0); HEMATOCRIT 35.6 % (37.0-47.0); HEMOGLOBIN 11.5 g/dl (12.0-16.0); LYMPHOCYTES # 1.8 10^3/ul (0.8-2.9); LYMPHOCYTES % 24.8 % (15.0-51.0); MEAN CORPUSCULAR HEMOGLOBIN 30.4 pg (29.0-33.0); MEAN CORPUSCULAR HGB CONC 32.3 g/dl (32.0-37.0); MEAN CORPUSCULAR VOLUME 94.2 fl (82.0-101.0); MONOCYTE # 0.8 10^3/ul (0.3-0.9); MONOCYTES % 11.3 % (0.0-11.0); NEUTROPHIL # 4.4 10^3/ul (1.6-7.5); NEUTROPHILS % 59.3 % (39.0-77.0); PLATELET COUNT 88 10^3/UL (140-415); RED BLOOD COUNT 3.78 10^6/ul (4.20-5.40); RED CELL DISTRIBUTION WIDTH 14.2 % (11.5-14.5)
[2018-08-26 06:09] LABS: WHITE BLOOD COUNT 7.4 10^3/ul (4.8-10.8)
[2018-08-26 06:33] LABS: POSITIVE DIFF @See below
[2018-08-26 06:55] LABS: ANION GAP 10 (5-13); BLOOD UREA NITROGEN 15 mg/dl (7-20); CARBON DIOXIDE 25 mmol/L (21-31); CHLORIDE 106 mmol/L (97-110); CREATININE 0.78 mg/dl (0.44-1.00); GLUCOSE 83 mg/dl (70-220); MAGNESIUM 1.9 mg/dl (1.7-2.5); SODIUM 141 mmol/L (135-144)
[2018-08-26 07:10] LABS: T4 (THYROXINE) 14.2 ug/dl (5.5-11.0)
[2018-08-26 07:13] LABS: POTASSIUM 3.8 mmol/L (3.5-5.1)
[2018-08-26] MEDS: AMIODARONE 200 MG TAB PO ×3 (09:15→20:20)
[2018-08-26] MEDS: ASPIRIN (EC) 81 MG TAB PO (09:16)
[2018-08-26] MEDS: LEVETIRACETAM 500 MG TAB PO ×2 (09:16→20:15)
[2018-08-26] MEDS: FUROSEMIDE 20 MG TAB PO (09:17)
[2018-08-26] MEDS: PHENYTOIN (25 MG/ML PO SYG) PO ×3 (10:43→20:15)
[2018-08-26] MEDS: POTASSIUM CHLORIDE (SR) 20 MEQ TAB PO (11:30)
[2018-08-26] MEDS: POTASSIUM CHLORIDE 20 MEQ POWDER FOR ORAL SOLN PO (13:00)
[2018-08-26] MEDS: FUROSEMIDE 20 MG INJ IV (15:21)
[2018-08-26] MEDS: MAGNESIUM SULFATE 2 GM/50 ML 50 ML IVPB (15:24)
[2018-08-26] MEDS ORDERED: VANCOMYCIN 1 GM 250 ML IVPB (18:00)
[2018-08-26] MEDS: ATORVASTATIN 10 MG TAB PO (20:15)
[2018-08-26] MEDS: CEFTRIAXONE 1 GM/50 ML (PMX) 50 ML IVPB (20:18)
[2018-08-26] MEDS: traZODone 50 MG TAB PO (20:21)
[2018-08-27 05:37] LABS: ADD MAN DIFF? NO
[2018-08-27] MEDS: LEVOTHYROXINE 50 MCG TAB PO (05:38)
[2018-08-27 05:39] LABS: BASOPHILS % 0.5 % (0.0-2.0); EOSINOPHILS # 0.2 10^3/ul (0.0-0.5); EOSINOPHILS % 3.2 % (0.0-7.0); HEMATOCRIT 34.5 % (37.0-47.0); HEMOGLOBIN 11.1 g/dl (12.0-16.0); LYMPHOCYTES # 1.7 10^3/ul (0.8-2.9); LYMPHOCYTES % 26.3 % (15.0-51.0); MEAN CORPUSCULAR HGB CONC 32.2 g/dl (32.0-37.0); MEAN CORPUSCULAR VOLUME 96.4 fl (82.0-101.0); MEAN PLATELET VOLUME 12.5 fl (7.4-10.4); MONOCYTE # 0.6 10^3/ul (0.3-0.9); MONOCYTES % 9.4 % (0.0-11.0); NEUTROPHIL # 3.9 10^3/ul (1.6-7.5); NEUTROPHILS % 60.1 % (39.0-77.0); PLATELET COUNT 107 10^3/UL (140-415); RED BLOOD COUNT 3.58 10^6/ul (4.20-5.40); RED CELL DISTRIBUTION WIDTH 14.2 % (11.5-14.5)
[2018-08-27 05:39] LABS: WHITE BLOOD COUNT 6.5 10^3/ul (4.8-10.8)
[2018-08-27] MEDS: DILTIAZEM-D5W 125MG/125ML DRIP 125 ML IV ×2 (05:50→09:27)
[2018-08-27 06:17] LABS: ANION GAP 7 (5-13); BLOOD UREA NITROGEN 22 mg/dl (7-20); CALCIUM 8.2 mg/dl (8.4-10.2); CARBON DIOXIDE 30 mmol/L (21-31); CHLORIDE 104 mmol/L (97-110); CREATININE 0.89 mg/dl (0.44-1.00); GLUCOSE 81 mg/dl (70-220); POTASSIUM 4.2 mmol/L (3.5-5.1); SODIUM 141 mmol/L (135-144)
[2018-08-27 06:27] LABS: MAGNESIUM 2.6 mg/dl (1.7-2.5)
[2018-08-27] MEDS: ASPIRIN (EC) 81 MG TAB PO (08:22)
[2018-08-27] MEDS: FUROSEMIDE 20 MG TAB PO (08:23)
[2018-08-27] MEDS: LEVETIRACETAM 500 MG TAB PO ×2 (08:23→20:31)
[2018-08-27] MEDS: AMIODARONE 200 MG TAB PO ×3 (08:24→20:32)
[2018-08-27] MEDS: PHENYTOIN (25 MG/ML PO SYG) PO ×3 (09:26→20:31)
[2018-08-27] MEDS: CEFTRIAXONE 1 GM/50 ML (PMX) 50 ML IVPB (19:45)
[2018-08-27] MEDS: BALSAM PERU/CASTOR OIL 60 GM TUBE TOP (20:31)
[2018-08-27] MEDS: ATORVASTATIN 10 MG TAB PO (20:31)
[2018-08-27] MEDS: traZODone 50 MG TAB PO (20:31)
[2018-08-28] MEDS: LEVOTHYROXINE 50 MCG TAB PO (05:55)
[2018-08-28] MEDS: FUROSEMIDE 20 MG TAB PO (09:22)
[2018-08-28] MEDS: AMIODARONE 200 MG TAB PO ×2 (09:22→20:46)
[2018-08-28] MEDS: ASPIRIN (EC) 81 MG TAB PO (09:22)
[2018-08-28] MEDS: LEVETIRACETAM 500 MG TAB PO ×2 (09:22→20:46)
[2018-08-28] MEDS: PHENYTOIN (25 MG/ML PO SYG) PO ×3 (09:25→20:46)
[2018-08-28] MEDS: BALSAM PERU/CASTOR OIL 60 GM TUBE TOP (09:26)
[2018-08-28] MEDS: DILTIAZEM-D5W 125MG/125ML DRIP 125 ML IV (11:30)
[2018-08-28] MEDS: CEFTRIAXONE 1 GM/50 ML (PMX) 50 ML IVPB (20:45)
[2018-08-28] MEDS: ATORVASTATIN 10 MG TAB PO (20:46)
[2018-08-28] MEDS: traZODone 50 MG TAB PO (20:46)
[2018-08-29 05:58] LABS: ADD MAN DIFF? NO
[2018-08-29 06:04] LABS: BASOPHILS % 0.5 % (0.0-2.0); EOSINOPHILS # 0.2 10^3/ul (0.0-0.5); EOSINOPHILS % 3.1 % (0.0-7.0); HEMATOCRIT 35.8 % (37.0-47.0); HEMOGLOBIN 11.2 g/dl (12.0-16.0); LYMPHOCYTES # 1.4 10^3/ul (0.8-2.9); LYMPHOCYTES % 21.4 % (15.0-51.0); MEAN CORPUSCULAR HEMOGLOBIN 30.6 pg (29.0-33.0); MEAN CORPUSCULAR HGB CONC 31.3 g/dl (32.0-37.0); MEAN CORPUSCULAR VOLUME 97.8 fl (82.0-101.0); MONOCYTE # 0.5 10^3/ul (0.3-0.9); MONOCYTES % 8.2 % (0.0-11.0); NEUTROPHIL # 4.3 10^3/ul (1.6-7.5); NEUTROPHILS % 66.2 % (39.0-77.0); PLATELET COUNT 126 10^3/UL (140-415); RED BLOOD COUNT 3.66 10^6/ul (4.20-5.40); RED CELL DISTRIBUTION WIDTH 14.1 % (11.5-14.5)
[2018-08-29 06:04] LABS: WHITE BLOOD COUNT 6.5 10^3/ul (4.8-10.8)
[2018-08-29] MEDS: LEVOTHYROXINE 50 MCG TAB PO (06:11)
[2018-08-29 06:30] LABS: ANION GAP 5 (5-13); BLOOD UREA NITROGEN 25 mg/dl (7-20); CALCIUM 8.6 mg/dl (8.4-10.2); CARBON DIOXIDE 34 mmol/L (21-31); CHLORIDE 100 mmol/L (97-110); CREATININE 0.83 mg/dl (0.44-1.00); GLUCOSE 86 mg/dl (70-220); MAGNESIUM 2.2 mg/dl (1.7-2.5); POTASSIUM 4.1 mmol/L (3.5-5.1); SODIUM 139 mmol/L (135-144)
[2018-08-29] MEDS: LEVETIRACETAM 500 MG TAB PO ×2 (08:53→20:53)
[2018-08-29] MEDS: FUROSEMIDE 20 MG TAB PO (08:54)
[2018-08-29] MEDS: AMIODARONE 200 MG TAB PO ×2 (08:54→20:54)
[2018-08-29] MEDS: ASPIRIN (EC) 81 MG TAB PO (08:54)
[2018-08-29] MEDS: PHENYTOIN (25 MG/ML PO SYG) PO ×3 (08:55→20:53)
[2018-08-29] MEDS: BALSAM PERU/CASTOR OIL 60 GM TUBE TOP (08:55)
[2018-08-29] MEDS: DILTIAZEM-D5W 125MG/125ML DRIP 125 ML IV (11:26)
[2018-08-29] MEDS: traZODone 50 MG TAB PO (20:53)
[2018-08-29] MEDS: CEFTRIAXONE 1 GM/50 ML (PMX) 50 ML IVPB (20:53)
[2018-08-29] MEDS: ATORVASTATIN 10 MG TAB PO (20:53)
[2018-08-30] MEDS: LEVOTHYROXINE 50 MCG TAB PO (05:30)
[2018-08-30] MEDS: LEVETIRACETAM 500 MG TAB PO ×2 (09:16→20:28)
[2018-08-30] MEDS: ASPIRIN (EC) 81 MG TAB PO (09:16)
[2018-08-30] MEDS: PHENYTOIN (25 MG/ML PO SYG) PO ×3 (09:16→20:28)
[2018-08-30] MEDS: BALSAM PERU/CASTOR OIL 60 GM TUBE TOP (09:17)
[2018-08-30] MEDS: FUROSEMIDE 20 MG TAB PO (09:17)
[2018-08-30] MEDS: AMIODARONE 200 MG TAB PO ×2 (09:17→20:29)
[2018-08-30] MEDS: DILTIAZEM-D5W 125MG/125ML DRIP 125 ML IV (12:39)
[2018-08-30] MEDS: CEFTRIAXONE 1 GM/50 ML (PMX) 50 ML IVPB (20:19)
[2018-08-30] MEDS: ATORVASTATIN 10 MG TAB PO (20:28)
[2018-08-30] MEDS: traZODone 50 MG TAB PO (20:29)
[2018-08-31] MEDS: LEVOTHYROXINE 50 MCG TAB PO (05:26)
[2018-08-31] MEDS: ASPIRIN (EC) 81 MG TAB PO (09:14)
[2018-08-31] MEDS: LEVETIRACETAM 500 MG TAB PO ×2 (09:14→21:09)
[2018-08-31] MEDS: PHENYTOIN (25 MG/ML PO SYG) PO ×3 (09:15→21:08)
[2018-08-31] MEDS: BALSAM PERU/CASTOR OIL 60 GM TUBE TOP (09:16)
[2018-08-31] MEDS: AMIODARONE 200 MG TAB PO ×2 (09:16→21:09)
[2018-08-31] MEDS: FUROSEMIDE 20 MG TAB PO (09:16)
[2018-08-31 09:33] LABS: ADD MAN DIFF? NO
[2018-08-31 09:40] LABS: BASOPHILS % 0.5 % (0.0-2.0); EOSINOPHILS # 0.1 10^3/ul (0.0-0.5); EOSINOPHILS % 2.3 % (0.0-7.0); HEMATOCRIT 37.1 % (37.0-47.0); HEMOGLOBIN 11.7 g/dl (12.0-16.0); LYMPHOCYTES # 1.2 10^3/ul (0.8-2.9); LYMPHOCYTES % 20.2 % (15.0-51.0); MEAN CORPUSCULAR HEMOGLOBIN 30.8 pg (29.0-33.0); MEAN CORPUSCULAR HGB CONC 31.5 g/dl (32.0-37.0); MEAN CORPUSCULAR VOLUME 97.6 fl (82.0-101.0); MEAN PLATELET VOLUME 12.6 fl (7.4-10.4); MONOCYTE # 0.5 10^3/ul (0.3-0.9); MONOCYTES % 8.5 % (0.0-11.0); NEUTROPHIL # 4.2 10^3/ul (1.6-7.5); NEUTROPHILS % 67.7 % (39.0-77.0); PLATELET COUNT 156 10^3/UL (140-415); RED CELL DISTRIBUTION WIDTH 14.3 % (11.5-14.5)
[2018-08-31 09:40] LABS: WHITE BLOOD COUNT 6.1 10^3/ul (4.8-10.8)
[2018-08-31 10:01] LABS: ANION GAP 8 (5-13); BLOOD UREA NITROGEN 23 mg/dl (7-20); CALCIUM 9.1 mg/dl (8.4-10.2); CARBON DIOXIDE 31 mmol/L (21-31); CHLORIDE 96 mmol/L (97-110); CREATININE 0.83 mg/dl (0.44-1.00); GLUCOSE 115 mg/dl (70-220); MAGNESIUM 2.1 mg/dl (1.7-2.5); POTASSIUM 4.3 mmol/L (3.5-5.1); SODIUM 135 mmol/L (135-144)
[2018-08-31] MEDS: DILTIAZEM-D5W 125MG/125ML DRIP 125 ML IV (11:24)
[2018-08-31] MEDS: traZODone 50 MG TAB PO (21:08)
[2018-08-31] MEDS: ATORVASTATIN 10 MG TAB PO (21:09)
[2018-09-01] MEDS: LEVOTHYROXINE 50 MCG TAB PO (05:49)
[2018-09-01] MEDS: PHENYTOIN (25 MG/ML PO SYG) PO (08:13)
[2018-09-01] MEDS: ASPIRIN (EC) 81 MG TAB PO (08:13)
[2018-09-01] MEDS: LEVETIRACETAM 500 MG TAB PO (08:13)
[2018-09-01] MEDS: FUROSEMIDE 20 MG TAB PO (08:15)
[2018-09-01] MEDS: AMIODARONE 200 MG TAB PO (08:16)
[2018-09-01] MEDS: BALSAM PERU/CASTOR OIL 60 GM TUBE TOP (08:18)
== END 2018-09-01 12:37 | disposition home or self-care (01) | DRG 100 ==
LOC: E/R 13:25 → 6WM 16:15
DX: G40.909 Epilepsy, unspecified, not intractable, without status epilepticus (principal); J18.9 Pneumonia, unspecified organism; I50.23 Acute on chronic systolic (congestive) heart failure; N39.0 Urinary tract infection, site not specified; C34.90 Malignant neoplasm of unspecified part of unspecified bronchus or lung; C79.51 Secondary malignant neoplasm of bone; J44.0 Chronic obstructive pulmonary disease with (acute) lower respiratory infection; I42.9 Cardiomyopathy, unspecified; E03.9 Hypothyroidism, unspecified; I25.10 Atherosclerotic heart disease of native coronary artery without angina pectoris; Z98.61 Coronary angioplasty status; Z95.810 Presence of automatic (implantable) cardiac defibrillator; I25.2 Old myocardial infarction; H54.8 Legal blindness, as defined in USA; I73.9 Peripheral vascular disease, unspecified; Z86.011 Personal history of benign neoplasm of the brain; Z87.891 Personal history of nicotine dependence
CPT/HCPCS: 36415; 70450; 71045; 80048; 80053; 80185; 80202; 81001; 83605; 83735; 83880; 84436; 84443; 84484; 85025; 87040; 90686; 92526; 92610; 93005; 93306; 96365; 96375; 99291-25

== ENCOUNTER 2018-12-24 20:56 | Inpatient (IN) | payer BC ==
[2018-12-24 21:46] LABS: ADD MAN DIFF? NO
[2018-12-24 21:51] LABS: WHITE BLOOD COUNT 6.3 10^3/ul (4.8-10.8)
[2018-12-24 21:51] LABS: BASOPHIL # 0.1 10^3/ul (0.0-0.1); BASOPHILS % 0.8 % (0.0-2.0); EOSINOPHILS # 0.2 10^3/ul (0.0-0.5); EOSINOPHILS % 3.2 % (0.0-7.0); HEMOGLOBIN 9.5 g/dl (12.0-16.0); LYMPHOCYTES % 31.2 % (15.0-51.0); MEAN CORPUSCULAR HEMOGLOBIN 30.6 pg (29.0-33.0); MEAN CORPUSCULAR HGB CONC 31.7 g/dl (32.0-37.0); MEAN CORPUSCULAR VOLUME 96.8 fl (82.0-101.0); MONOCYTE # 0.6 10^3/ul (0.3-0.9); MONOCYTES % 9.4 % (0.0-11.0); NEUTROPHIL # 3.4 10^3/ul (1.6-7.5); NEUTROPHILS % 54.9 % (39.0-77.0); PLATELET COUNT 116 10^3/UL (140-415)
[2018-12-24] MEDS: ONDANSETRON 4 MG INJ IV (21:55)
[2018-12-24] MEDS: morphine 4 MG/ML VIAL IV (21:55)
[2018-12-24] MEDS: SOD CHLORIDE 0.9% 500 ML IV (21:55)
[2018-12-24 22:12] LABS: ANION GAP 10 (5-13); BLOOD UREA NITROGEN 51 mg/dl (7-20); CALCIUM 8.7 mg/dl (8.4-10.2); CARBON DIOXIDE 21 mmol/L (21-31); CHLORIDE 103 mmol/L (97-110); CREATININE 2.01 mg/dl (0.44-1.00); GLUCOSE 89 mg/dl (70-220); INR 1.26; PROTIME 15.9 Sec (11.9-14.9); PT RATIO 1.2; SODIUM 134 mmol/L (135-144)
[2018-12-24 22:13] LABS: PARTIAL THROMBOPLASTIN TIME 45.6 Sec (23.0-35.0)
[2018-12-24 22:18] LABS: POTASSIUM 6.1 mmol/L (3.5-5.1)
[2018-12-24 22:19] LABS: TROPONIN-I 0.013 ng/ml (0.000-0.120)
[2018-12-24] MEDS: NA BICARBONATE 8.4% 50 ML SYG IV (22:28)
[2018-12-24] MEDS: CALCIUM GLUCONATE 10% 1 GM in DEXTROSE 5% 100 ML IVPB (22:52)
[2018-12-24] MEDS ORDERED: ONDANSETRON 4 MG INJ IV (23:30)
[2018-12-24] MEDS ORDERED: ACETAMINOPHEN 325 MG TAB PO (23:30)
[2018-12-25] MEDS ORDERED: ONDANSETRON 4 MG INJ IV (06:30)
[2018-12-25] MEDS: LEVOTHYROXINE 100 MCG TAB PO (08:30)
[2018-12-25] MEDS: ASPIRIN 81 MG TAB PO (08:30)
[2018-12-25] MEDS: LACTOBACILLUS RHAMNOSUS CAP PO (08:30)
[2018-12-25] MEDS: CYANOCOBALAMIN 500 MCG TAB PO (08:31)
[2018-12-25] MEDS: RALOXIFENE 60 MG TAB PO (09:57)
[2018-12-25] MEDS: PHENYTOIN (100 MG/4 ML) CUP PO ×3 (09:57→20:46)
[2018-12-25] MEDS: DEXTROSE 5%-0.225% NACL 1,000 ML IV (14:51)
[2018-12-25 14:56] LABS: ADD MAN DIFF? NO
[2018-12-25 14:57] LABS: BASOPHILS % 0.5 % (0.0-2.0); EOSINOPHILS # 0.1 10^3/ul (0.0-0.5); EOSINOPHILS % 2.2 % (0.0-7.0); HEMATOCRIT 27.9 % (37.0-47.0); HEMOGLOBIN 8.7 g/dl (12.0-16.0); LYMPHOCYTES # 1.5 10^3/ul (0.8-2.9); LYMPHOCYTES % 26.9 % (15.0-51.0); MEAN CORPUSCULAR HEMOGLOBIN 30.9 pg (29.0-33.0); MEAN CORPUSCULAR HGB CONC 31.2 g/dl (32.0-37.0); MEAN CORPUSCULAR VOLUME 98.9 fl (82.0-101.0); MEAN PLATELET VOLUME 11.7 fl (7.4-10.4); MONOCYTE # 0.5 10^3/ul (0.3-0.9); MONOCYTES % 9.1 % (0.0-11.0); NEUTROPHIL # 3.4 10^3/ul (1.6-7.5); NEUTROPHILS % 60.8 % (39.0-77.0); PLATELET COUNT 124 10^3/UL (140-415); RED BLOOD COUNT 2.82 10^6/ul (4.20-5.40); RED CELL DISTRIBUTION WIDTH 15.9 % (11.5-14.5)
[2018-12-25 14:57] LABS: WHITE BLOOD COUNT 5.6 10^3/ul (4.8-10.8)
[2018-12-25 15:16] LABS: ANION GAP 6 (5-13); BLOOD UREA NITROGEN 44 mg/dl (7-20); CALCIUM 8.7 mg/dl (8.4-10.2); CARBON DIOXIDE 21 mmol/L (21-31); CHLORIDE 108 mmol/L (97-110); CREATININE 1.91 mg/dl (0.44-1.00); GLUCOSE 81 mg/dl (70-220); POTASSIUM 5.9 mmol/L (3.5-5.1); SODIUM 135 mmol/L (135-144)
[2018-12-25 16:52] LABS: ADD UMIC YES; UR ASCORBIC ACID 40 mg/dL (NEGATIVE); UR BACTERIA FEW /HPF (NONE SEEN); UR BILIRUBIN (Dip) NEGATIVE (NEGATIVE); UR BLOOD (Dip) 2+ mg/dL (NEGATIVE); UR CLARITY TURBID (CLEAR); UR COLOR YELLOW (YELLOW); UR GLUCOSE (Dip) NEGATIVE (NEGATIVE); UR KETONES (Dip) NEGATIVE (NEGATIVE); UR LEUKOCYTE ESTERASE (Dip) 3+ Leu/ul (NEGATIVE); UR MUCUS FEW /HPF (NONE SEEN); UR NITRITE (Dip) NEGATIVE (NEGATIVE); UR RBC 14 /HPF (0-5); UR SPECIFIC GRAVITY (Dip) 1.013 (1.003-1.030); UR SQUAMOUS EPITHELIAL CELL FEW /HPF (FEW); UR TOTAL PROTEIN (Dip) 1+ mg/dl (NEGATIVE); UR UROBILINOGEN (Dip) NEGATIVE (NEGATIVE); UR WBC > 182 /HPF (0-5)
[2018-12-25] MEDS: NA POLYST SULFON 15 GM/60 ML BTL PO (18:35)
[2018-12-25] MEDS: ATORVASTATIN 10 MG TAB PO (20:46)
[2018-12-26] MEDS: DEXTROSE 5%-0.225% NACL 1,000 ML IV ×2 (04:49→17:40)
[2018-12-26 05:44] LABS: ADD MAN DIFF? NO
[2018-12-26 05:46] LABS: BASOPHILS % 0.5 % (0.0-2.0); EOSINOPHILS # 0.2 10^3/ul (0.0-0.5); EOSINOPHILS % 2.6 % (0.0-7.0); HEMATOCRIT 28.5 % (37.0-47.0); LYMPHOCYTES # 1.7 10^3/ul (0.8-2.9); LYMPHOCYTES % 28.1 % (15.0-51.0); MEAN CORPUSCULAR HEMOGLOBIN 30.9 pg (29.0-33.0); MEAN CORPUSCULAR HGB CONC 31.6 g/dl (32.0-37.0); MEAN CORPUSCULAR VOLUME 97.9 fl (82.0-101.0); MEAN PLATELET VOLUME 12.9 fl (7.4-10.4); MONOCYTE # 0.6 10^3/ul (0.3-0.9); MONOCYTES % 9.6 % (0.0-11.0); NEUTROPHIL # 3.5 10^3/ul (1.6-7.5); NEUTROPHILS % 58.7 % (39.0-77.0); PLATELET COUNT 111 10^3/UL (140-415); RED BLOOD COUNT 2.91 10^6/ul (4.20-5.40); RED CELL DISTRIBUTION WIDTH 15.9 % (11.5-14.5)
[2018-12-26] MEDS: LEVOTHYROXINE 100 MCG TAB PO (06:09)
[2018-12-26 06:28] LABS: ANION GAP 7 (5-13); BLOOD UREA NITROGEN 39 mg/dl (7-20); CALCIUM 8.4 mg/dl (8.4-10.2); CARBON DIOXIDE 20 mmol/L (21-31); CHLORIDE 108 mmol/L (97-110); CREATININE 1.72 mg/dl (0.44-1.00); GLUCOSE 96 mg/dl (70-220); MAGNESIUM 2.3 mg/dl (1.7-2.5); POTASSIUM 5.8 mmol/L (3.5-5.1); SODIUM 135 mmol/L (135-144)
[2018-12-26] MEDS: CEFTRIAXONE 1 GM/50 ML (PMX) 50 ML IVPB (09:41)
[2018-12-26] MEDS: NA POLYST SULFON 15 GM/60 ML BTL PO ×2 (09:43→21:39)
[2018-12-26] MEDS: PHENYTOIN (100 MG/4 ML) CUP PO ×3 (09:44→21:38)
[2018-12-26] MEDS: LACTOBACILLUS RHAMNOSUS CAP PO (09:44)
[2018-12-26] MEDS: CYANOCOBALAMIN 500 MCG TAB PO (09:44)
[2018-12-26] MEDS: RALOXIFENE 60 MG TAB PO (09:44)
[2018-12-26] MEDS: ASPIRIN 81 MG TAB PO (09:45)
[2018-12-26] MEDS: [UNRECOGNIZED DRUG - REMARK] XX ×2 (10:00→18:00)
[2018-12-26] MEDS: ATORVASTATIN 10 MG TAB PO (21:38)
[2018-12-27] MEDS ORDERED: LORAZEPAM 2 MG INJ IV (01:00)
[2018-12-27] MEDS: morphine 2 MG INJ IV (01:39)
[2018-12-27] MEDS: [UNRECOGNIZED DRUG - REMARK] XX ×3 (02:00→17:24)
[2018-12-27] MEDS ORDERED: NORepinephrine 8MG/250 ML (PMX 250 ML (04:24)
[2018-12-27] MEDS: SOD CHLORIDE 0.9% 250 ML IV ×2 (04:30→05:05)
[2018-12-27] MEDS: NORepinephrine 8MG/250 ML (PMX 250 ML IV (05:08)
[2018-12-27 05:31] LABS: ADD MAN DIFF? NO
[2018-12-27 05:37] LABS: WHITE BLOOD COUNT 7.4 10^3/ul (4.8-10.8)
[2018-12-27 05:37] LABS: BASOPHILS % 0.4 % (0.0-2.0); EOSINOPHILS # 0.2 10^3/ul (0.0-0.5); EOSINOPHILS % 3.3 % (0.0-7.0); HEMATOCRIT 29.7 % (37.0-47.0); HEMOGLOBIN 9.6 g/dl (12.0-16.0); LYMPHOCYTES # 1.9 10^3/ul (0.8-2.9); LYMPHOCYTES % 25.5 % (15.0-51.0); MEAN CORPUSCULAR HEMOGLOBIN 31.3 pg (29.0-33.0); MEAN CORPUSCULAR HGB CONC 32.3 g/dl (32.0-37.0); MEAN CORPUSCULAR VOLUME 96.7 fl (82.0-101.0); MEAN PLATELET VOLUME 11.2 fl (7.4-10.4); MONOCYTE # 0.6 10^3/ul (0.3-0.9); MONOCYTES % 7.6 % (0.0-11.0); NEUTROPHIL # 4.6 10^3/ul (1.6-7.5); NEUTROPHILS % 62.7 % (39.0-77.0); PLATELET COUNT 172 10^3/UL (140-415); RED BLOOD COUNT 3.07 10^6/ul (4.20-5.40); RED CELL DISTRIBUTION WIDTH 15.9 % (11.5-14.5)
[2018-12-27 05:47] LABS: ADD UMIC YES; UR ASCORBIC ACID NEGATIVE (NEGATIVE); UR BACTERIA FEW /HPF (NONE SEEN); UR BILIRUBIN (Dip) NEGATIVE (NEGATIVE); UR BLOOD (Dip) 2+ mg/dL (NEGATIVE); UR CLARITY TURBID (CLEAR); UR COLOR AMBER (YELLOW); UR GLUCOSE (Dip) NEGATIVE (NEGATIVE); UR KETONES (Dip) NEGATIVE (NEGATIVE); UR LEUKOCYTE ESTERASE (Dip) 3+ Leu/ul (NEGATIVE); UR MUCUS FEW /HPF (NONE SEEN); UR NITRITE (Dip) NEGATIVE (NEGATIVE); UR NONSQUAMOUS EPITHELIAL CELL 7 /HPF (NONE SEEN); UR RBC 24 /HPF (0-5); UR SPECIFIC GRAVITY (Dip) 1.012 (1.003-1.030); UR SQUAMOUS EPITHELIAL CELL FEW /HPF (FEW); UR TOTAL PROTEIN (Dip) 2+ mg/dl (NEGATIVE); UR UROBILINOGEN (Dip) NEGATIVE (NEGATIVE); UR WBC > 182 /HPF (0-5)
[2018-12-27] MEDS: LEVOTHYROXINE 100 MCG TAB PO (06:00)
[2018-12-27 06:07] LABS: TROPONIN-I 0.036 ng/ml (0.000-0.120)
[2018-12-27 06:17] LABS: ANION GAP 8 (5-13); BLOOD UREA NITROGEN 30 mg/dl (7-20); CALCIUM 7.6 mg/dl (8.4-10.2); CARBON DIOXIDE 21 mmol/L (21-31); CHLORIDE 110 mmol/L (97-110); CREATININE 1.65 mg/dl (0.44-1.00); GLUCOSE 94 mg/dl (70-220); PHOSPHORUS 2.9 mg/dl (2.5-4.9); POTASSIUM 4.4 mmol/L (3.5-5.1); SODIUM 139 mmol/L (135-144)
[2018-12-27] MEDS: SOD CHLORIDE 0.9% 1,000 ML IV ×2 (06:37→16:16)
[2018-12-27] MEDS: DEXTROSE 5%-0.225% NACL 1,000 ML IV (07:00)
[2018-12-27] MEDS: ASPIRIN 81 MG TAB PO (08:19)
[2018-12-27] MEDS: CYANOCOBALAMIN 500 MCG TAB PO (08:19)
[2018-12-27] MEDS: LACTOBACILLUS RHAMNOSUS CAP PO (08:19)
[2018-12-27] MEDS: NA POLYST SULFON 15 GM/60 ML BTL PO (09:00)
[2018-12-27] MEDS: CEFTRIAXONE 1 GM/50 ML (PMX) 50 ML IVPB (09:17)
[2018-12-27] MEDS: PHENYTOIN (100 MG/4 ML) CUP PO ×3 (11:04→20:50)
[2018-12-27] MEDS: RALOXIFENE 60 MG TAB PO (11:05)
[2018-12-27] MEDS: traZODone 50 MG TAB PO ×4 (11:05→21:14)
[2018-12-27] MEDS: ATORVASTATIN 10 MG TAB PO (20:49)
[2018-12-28] MEDS: [UNRECOGNIZED DRUG - REMARK] XX (02:00)
[2018-12-28] MEDS: SOD CHLORIDE 0.9% 1,000 ML IV ×3 (02:09→20:48)
[2018-12-28 05:43] LABS: ADD MAN DIFF? NO
[2018-12-28 05:49] LABS: WHITE BLOOD COUNT 4.9 10^3/ul (4.8-10.8)
[2018-12-28 05:49] LABS: BASOPHILS % 0.4 % (0.0-2.0); EOSINOPHILS # 0.2 10^3/ul (0.0-0.5); HEMATOCRIT 25.8 % (37.0-47.0); HEMOGLOBIN 8.3 g/dl (12.0-16.0); LYMPHOCYTES % 19.6 % (15.0-51.0); MEAN CORPUSCULAR HEMOGLOBIN 31.7 pg (29.0-33.0); MEAN CORPUSCULAR HGB CONC 32.2 g/dl (32.0-37.0); MEAN CORPUSCULAR VOLUME 98.5 fl (82.0-101.0); MEAN PLATELET VOLUME 11.3 fl (7.4-10.4); MONOCYTE # 0.4 10^3/ul (0.3-0.9); MONOCYTES % 8.7 % (0.0-11.0); NEUTROPHIL # 3.3 10^3/ul (1.6-7.5); NEUTROPHILS % 67.5 % (39.0-77.0); PLATELET COUNT 114 10^3/UL (140-415); RED BLOOD COUNT 2.62 10^6/ul (4.20-5.40); RED CELL DISTRIBUTION WIDTH 15.8 % (11.5-14.5)
[2018-12-28] MEDS: LEVOTHYROXINE 100 MCG TAB PO (05:55)
[2018-12-28 06:29] LABS: ANION GAP 7 (5-13); BLOOD UREA NITROGEN 21 mg/dl (7-20); CALCIUM 7.1 mg/dl (8.4-10.2); CARBON DIOXIDE 18 mmol/L (21-31); CHLORIDE 116 mmol/L (97-110); GLUCOSE 66 mg/dl (70-220); MAGNESIUM 1.9 mg/dl (1.7-2.5); POTASSIUM 3.7 mmol/L (3.5-5.1); SODIUM 141 mmol/L (135-144)
[2018-12-28] MEDS: traZODone 50 MG TAB PO ×3 (09:00→20:49)
[2018-12-28] MEDS: ASPIRIN 81 MG TAB PO (09:00)
[2018-12-28] MEDS: L ACIDOPHIL/B LACTIS/B LONGUM CAPSULE PO ×2 (09:00→20:49)
[2018-12-28] MEDS: MEROPENEM 500MG/50 ML (PMX) 50 ML IVPB ×2 (12:27→21:43)
[2018-12-28] MEDS: RALOXIFENE 60 MG TAB PO (12:29)
[2018-12-28] MEDS: CYANOCOBALAMIN 500 MCG TAB PO (12:29)
[2018-12-28] MEDS: PHENYTOIN (100 MG/4 ML) CUP PO ×3 (12:29→20:50)
[2018-12-28] MEDS: ATORVASTATIN 10 MG TAB PO (20:49)
[2018-12-29] MEDS: LEVOTHYROXINE 100 MCG TAB PO (06:07)
[2018-12-29] MEDS: RALOXIFENE 60 MG TAB PO (08:30)
[2018-12-29] MEDS: ASPIRIN 81 MG TAB PO (08:30)
[2018-12-29] MEDS: CYANOCOBALAMIN 500 MCG TAB PO (08:30)
[2018-12-29] MEDS: L ACIDOPHIL/B LACTIS/B LONGUM CAPSULE PO ×2 (08:30→21:33)
[2018-12-29] MEDS: traZODone 50 MG TAB PO ×3 (08:30→21:33)
[2018-12-29 08:33] LABS: ADD MAN DIFF? NO
[2018-12-29] MEDS: PHENYTOIN (100 MG/4 ML) CUP PO ×3 (08:33→21:33)
[2018-12-29 08:37] LABS: WHITE BLOOD COUNT 4.9 10^3/ul (4.8-10.8)
[2018-12-29 08:37] LABS: ABNORMAL IP MESSAGE 1; BASOPHILS % 0.4 % (0.0-2.0); EOSINOPHILS # 0.2 10^3/ul (0.0-0.5); EOSINOPHILS % 3.3 % (0.0-7.0); HEMATOCRIT 23.9 % (37.0-47.0); HEMOGLOBIN 7.6 g/dl (12.0-16.0); LYMPHOCYTES # 1.2 10^3/ul (0.8-2.9); LYMPHOCYTES % 23.5 % (15.0-51.0); MEAN CORPUSCULAR HEMOGLOBIN 30.6 pg (29.0-33.0); MEAN CORPUSCULAR HGB CONC 31.8 g/dl (32.0-37.0); MEAN CORPUSCULAR VOLUME 96.4 fl (82.0-101.0); MEAN PLATELET VOLUME 13.2 fl (7.4-10.4); MONOCYTE # 0.5 10^3/ul (0.3-0.9); MONOCYTES % 9.4 % (0.0-11.0); NEUTROPHIL # 3.1 10^3/ul (1.6-7.5); PLATELET COUNT 101 10^3/UL (140-415); RED BLOOD COUNT 2.48 10^6/ul (4.20-5.40); RED CELL DISTRIBUTION WIDTH 15.8 % (11.5-14.5)
[2018-12-29 08:45] LABS: POSITIVE DIFF @See below
[2018-12-29] MEDS: MEROPENEM 500MG/50 ML (PMX) 50 ML IVPB ×2 (09:32→21:33)
[2018-12-29 09:38] LABS: ANION GAP 9 (5-13); BLOOD UREA NITROGEN 23 mg/dl (7-20); CALCIUM 7.2 mg/dl (8.4-10.2); CARBON DIOXIDE 18 mmol/L (21-31); CHLORIDE 114 mmol/L (97-110); CREATININE 1.33 mg/dl (0.44-1.00); GLUCOSE 69 mg/dl (70-220); POTASSIUM 3.4 mmol/L (3.5-5.1); SODIUM 141 mmol/L (135-144)
[2018-12-29] MEDS: POTASSIUM CHLORIDE (SR) 20 MEQ TAB PO (10:55)
[2018-12-29] MEDS: SOD CHLORIDE 0.9% 1,000 ML IV ×2 (11:06→14:00)
[2018-12-29] MEDS: ATORVASTATIN 10 MG TAB PO (21:33)
[2018-12-30] MEDS: LEVOTHYROXINE 100 MCG TAB PO (05:20)
[2018-12-30 06:55] LABS: ADD MAN DIFF? NO
[2018-12-30 07:05] LABS: ABNORMAL IP MESSAGE 1; BASOPHILS % 0.6 % (0.0-2.0); EOSINOPHILS # 0.2 10^3/ul (0.0-0.5); EOSINOPHILS % 3.1 % (0.0-7.0); HEMOGLOBIN 8.4 g/dl (12.0-16.0); LYMPHOCYTES # 1.1 10^3/ul (0.8-2.9); LYMPHOCYTES % 21.8 % (15.0-51.0); MEAN CORPUSCULAR HEMOGLOBIN 30.5 pg (29.0-33.0); MEAN CORPUSCULAR HGB CONC 31.1 g/dl (32.0-37.0); MEAN CORPUSCULAR VOLUME 98.2 fl (82.0-101.0); MEAN PLATELET VOLUME 13.4 fl (7.4-10.4); MONOCYTE # 0.4 10^3/ul (0.3-0.9); MONOCYTES % 8.4 % (0.0-11.0); NEUTROPHIL # 3.4 10^3/ul (1.6-7.5); NEUTROPHILS % 65.5 % (39.0-77.0); PLATELET COUNT 96 10^3/UL (140-415); RED BLOOD COUNT 2.75 10^6/ul (4.20-5.40)
[2018-12-30 07:05] LABS: WHITE BLOOD COUNT 5.1 10^3/ul (4.8-10.8)
[2018-12-30 07:18] LABS: POSITIVE DIFF @See below
[2018-12-30 07:23] LABS: ALANINE AMINOTRANSFERASE 36 IU/L (13-69); ALBUMIN 3.5 g/dl (3.3-4.9); ALBUMIN/GLOBULIN RATIO 1.06; ALKALINE PHOSPHATASE 118 IU/L (42-121); ANION GAP 11 (5-13); ASPARTATE AMINO TRANSFERASE 38 IU/L (15-46); BLOOD UREA NITROGEN 17 mg/dl (7-20); CALCIUM 7.4 mg/dl (8.4-10.2); CARBON DIOXIDE 17 mmol/L (21-31); CHLORIDE 114 mmol/L (97-110); CREATININE 1.07 mg/dl (0.44-1.00); GLUCOSE 74 mg/dl (70-220); POTASSIUM 3.5 mmol/L (3.5-5.1); SODIUM 142 mmol/L (135-144); TOTAL PROTEIN 6.8 g/dl (6.1-8.1)
[2018-12-30 07:24] LABS: MAGNESIUM 1.6 mg/dl (1.7-2.5)
[2018-12-30 07:34] LABS: PHENYTOIN (DILANTIN) 20.5 ug/ml (10.0-20.0)
[2018-12-30] MEDS: traZODone 50 MG TAB PO ×3 (08:40→20:51)
[2018-12-30] MEDS: CYANOCOBALAMIN 500 MCG TAB PO (08:40)
[2018-12-30] MEDS: RALOXIFENE 60 MG TAB PO (08:40)
[2018-12-30] MEDS: ASPIRIN 81 MG TAB PO (08:41)
[2018-12-30] MEDS: L ACIDOPHIL/B LACTIS/B LONGUM CAPSULE PO ×2 (08:41→20:51)
[2018-12-30] MEDS: SOD CHLORIDE 0.9% 1,000 ML IV (08:50)
[2018-12-30] MEDS: PHENYTOIN (100 MG/4 ML) CUP PO (08:52)
[2018-12-30] MEDS: MEROPENEM 500MG/50 ML (PMX) 50 ML IVPB ×2 (09:29→20:51)
[2018-12-30] MEDS: NS + KCL 20 MEQ 1,000 ML IV (15:34)
[2018-12-30] MEDS: POTASSIUM CHLORIDE 20 MEQ in SOD CHLORIDE 0.9% 1,000 ML IV (15:36)
[2018-12-30] MEDS: ATORVASTATIN 10 MG TAB PO (20:51)
[2018-12-30 23:00] LABS: IRON 49 ug/dl (35-150)
[2018-12-30 23:09] LABS: % IRON SATURATION 25 % SAT (22-52); TOTAL IRON BINDING CAPACITY 200 ug/dl (241-421)
[2018-12-31] MEDS: LEVOTHYROXINE 100 MCG TAB PO (06:07)
[2018-12-31] MEDS: ASPIRIN 81 MG TAB PO (08:06)
[2018-12-31] MEDS: MEROPENEM 500MG/50 ML (PMX) 50 ML IVPB ×2 (08:07→21:42)
[2018-12-31] MEDS: L ACIDOPHIL/B LACTIS/B LONGUM CAPSULE PO ×2 (08:07→20:17)
[2018-12-31] MEDS: RALOXIFENE 60 MG TAB PO (08:07)
[2018-12-31] MEDS: CYANOCOBALAMIN 500 MCG TAB PO (08:07)
[2018-12-31] MEDS: NS + KCL 20 MEQ 1,000 ML IV (11:05)
[2018-12-31] MEDS: PHENYTOIN (100 MG/4 ML) CUP PO (20:17)
[2018-12-31] MEDS: ATORVASTATIN 10 MG TAB PO (20:17)
[2018-12-31] MEDS: traZODone 50 MG TAB PO (20:17)
[2019-01-01] MEDS: LEVOTHYROXINE 100 MCG TAB PO (06:01)
[2019-01-01] MEDS: NS + KCL 20 MEQ 1,000 ML IV (06:02)
[2019-01-01 07:14] LABS: ADD MAN DIFF? NO
[2019-01-01 07:42] LABS: ABNORMAL IP MESSAGE 1; BASOPHILS % 0.5 % (0.0-2.0); EOSINOPHILS # 0.2 10^3/ul (0.0-0.5); HEMATOCRIT 28.4 % (37.0-47.0); HEMOGLOBIN 9.1 g/dl (12.0-16.0); LYMPHOCYTES # 1.8 10^3/ul (0.8-2.9); LYMPHOCYTES % 28.6 % (15.0-51.0); MEAN CORPUSCULAR HEMOGLOBIN 30.7 pg (29.0-33.0); MEAN CORPUSCULAR VOLUME 95.9 fl (82.0-101.0); MEAN PLATELET VOLUME 12.6 fl (7.4-10.4); MONOCYTE # 0.6 10^3/ul (0.3-0.9); MONOCYTES % 8.8 % (0.0-11.0); NEUTROPHIL # 3.6 10^3/ul (1.6-7.5); NEUTROPHILS % 58.5 % (39.0-77.0); PLATELET COUNT 85 10^3/UL (140-415); RED BLOOD COUNT 2.96 10^6/ul (4.20-5.40); RED CELL DISTRIBUTION WIDTH 16.3 % (11.5-14.5); RETICULOCYTE COUNT # 0.061 X10^6 (0.020-0.110); RETICULOCYTE COUNT % 2.1 % (0.5-1.5); RETICULOCYTE RBC 2.96
[2019-01-01 07:42] LABS: WHITE BLOOD COUNT 6.2 10^3/ul (4.8-10.8)
[2019-01-01 07:48] LABS: POSITIVE DIFF @See below
[2019-01-01] MEDS: MEROPENEM 500MG/50 ML (PMX) 50 ML IVPB ×2 (08:44→22:23)
[2019-01-01] MEDS: CYANOCOBALAMIN 500 MCG TAB PO (08:45)
[2019-01-01] MEDS: L ACIDOPHIL/B LACTIS/B LONGUM CAPSULE PO ×2 (08:45→20:24)
[2019-01-01] MEDS: PHENYTOIN (100 MG/4 ML) CUP PO ×3 (08:45→20:24)
[2019-01-01] MEDS: ASPIRIN 81 MG TAB PO (08:45)
[2019-01-01] MEDS: RALOXIFENE 60 MG TAB PO (08:45)
[2019-01-01] MEDS: traZODone 50 MG TAB PO (20:24)
[2019-01-01] MEDS: ATORVASTATIN 10 MG TAB PO (20:25)
[2019-01-01 23:03] LABS: ERYTHROPOIETIN 19.1 mIU/mL (2.6-18.5)
[2019-01-02] MEDS: NS + KCL 20 MEQ 1,000 ML IV (03:56)
[2019-01-02] MEDS: LEVOTHYROXINE 100 MCG TAB PO (06:34)
[2019-01-02] MEDS: L ACIDOPHIL/B LACTIS/B LONGUM CAPSULE PO ×2 (09:21→20:53)
[2019-01-02] MEDS: CYANOCOBALAMIN 500 MCG TAB PO (09:21)
[2019-01-02] MEDS: ASPIRIN 81 MG TAB PO (09:21)
[2019-01-02] MEDS: RALOXIFENE 60 MG TAB PO (09:21)
[2019-01-02] MEDS: MEROPENEM 500MG/50 ML (PMX) 50 ML IVPB ×2 (09:21→20:52)
[2019-01-02] MEDS: PHENYTOIN (100 MG/4 ML) CUP PO ×3 (10:59→20:53)
[2019-01-02] MEDS: ATORVASTATIN 10 MG TAB PO (20:52)
[2019-01-02] MEDS: traZODone 50 MG TAB PO (20:53)
[2019-01-03] MEDS: NS + KCL 20 MEQ 1,000 ML IV ×2 (01:09→21:16)
[2019-01-03] MEDS: LEVOTHYROXINE 100 MCG TAB PO (05:13)
[2019-01-03] MEDS: ASPIRIN 81 MG TAB PO (08:53)
[2019-01-03] MEDS: L ACIDOPHIL/B LACTIS/B LONGUM CAPSULE PO ×2 (08:53→21:16)
[2019-01-03] MEDS: RALOXIFENE 60 MG TAB PO (08:53)
[2019-01-03] MEDS: PHENYTOIN (100 MG/4 ML) CUP PO ×3 (08:53→21:16)
[2019-01-03] MEDS: CYANOCOBALAMIN 500 MCG TAB PO (08:53)
[2019-01-03] MEDS: MEROPENEM 500MG/50 ML (PMX) 50 ML IVPB ×2 (08:53→21:28)
[2019-01-03 18:07] LABS: ADD MAN DIFF? NO
[2019-01-03 18:15] LABS: WHITE BLOOD COUNT 6.9 10^3/ul (4.8-10.8)
[2019-01-03 18:15] LABS: ABNORMAL IP MESSAGE 1; BASOPHIL # 0.1 10^3/ul (0.0-0.1); BASOPHILS % 0.7 % (0.0-2.0); EOSINOPHILS # 0.2 10^3/ul (0.0-0.5); EOSINOPHILS % 3.1 % (0.0-7.0); HEMATOCRIT 30.3 % (37.0-47.0); HEMOGLOBIN 9.7 g/dl (12.0-16.0); LYMPHOCYTES # 1.9 10^3/ul (0.8-2.9); LYMPHOCYTES % 27.7 % (15.0-51.0); MEAN CORPUSCULAR VOLUME 96.8 fl (82.0-101.0); MEAN PLATELET VOLUME 11.5 fl (7.4-10.4); MONOCYTE # 0.6 10^3/ul (0.3-0.9); MONOCYTES % 8.3 % (0.0-11.0); NEUTROPHIL # 4.1 10^3/ul (1.6-7.5); NEUTROPHILS % 59.3 % (39.0-77.0); NUCLEATED RED BLOOD CELLS% 0.3 /100WBC (0.0-0.0); PLATELET COUNT 82 10^3/UL (140-415); RED BLOOD COUNT 3.13 10^6/ul (4.20-5.40); RED CELL DISTRIBUTION WIDTH 16.8 % (11.5-14.5)
[2019-01-03 18:20] LABS: POSITIVE DIFF @See below
[2019-01-03 18:30] LABS: ANION GAP 9 (5-13); BLOOD UREA NITROGEN 25 mg/dl (7-20); CALCIUM 8.9 mg/dl (8.4-10.2); CARBON DIOXIDE 23 mmol/L (21-31); CHLORIDE 106 mmol/L (97-110); CREATININE 0.75 mg/dl (0.44-1.00); GLUCOSE 78 mg/dl (70-220); MAGNESIUM 1.7 mg/dl (1.7-2.5); POTASSIUM 5.1 mmol/L (3.5-5.1); SODIUM 138 mmol/L (135-144)
[2019-01-03] MEDS: ATORVASTATIN 10 MG TAB PO (21:16)
[2019-01-03] MEDS: traZODone 50 MG TAB PO (21:16)
[2019-01-04] MEDS: LEVOTHYROXINE 100 MCG TAB PO (06:10)
[2019-01-04] MEDS: PHENYTOIN (100 MG/4 ML) CUP PO ×3 (08:34→23:08)
[2019-01-04] MEDS: ASPIRIN 81 MG TAB PO (08:34)
[2019-01-04] MEDS: RALOXIFENE 60 MG TAB PO (08:34)
[2019-01-04] MEDS: CYANOCOBALAMIN 500 MCG TAB PO (08:35)
[2019-01-04] MEDS: L ACIDOPHIL/B LACTIS/B LONGUM CAPSULE PO ×2 (08:35→23:08)
[2019-01-04] MEDS: MAGNESIUM SULFATE 2 GM/50 ML 50 ML IVPB (09:55)
[2019-01-04 18:07] LABS: RETICULOCYTE COUNT # 0.088 X10^6 (0.020-0.110)
[2019-01-04 18:07] LABS: RETICULOCYTE RBC 2.91
[2019-01-04] MEDS: traZODone 50 MG TAB PO (23:07)
[2019-01-04] MEDS: ATORVASTATIN 10 MG TAB PO (23:08)
[2019-01-04] MEDS: LISINOPRIL 5 MG TAB PO (23:14)
[2019-01-05 06:17] LABS: ADD MAN DIFF? NO
[2019-01-05 06:23] LABS: ABNORMAL IP MESSAGE 1; BASOPHILS % 0.6 % (0.0-2.0); EOSINOPHILS # 0.2 10^3/ul (0.0-0.5); EOSINOPHILS % 3.6 % (0.0-7.0); HEMATOCRIT 29.3 % (37.0-47.0); HEMOGLOBIN 9.4 g/dl (12.0-16.0); LYMPHOCYTES # 2.6 10^3/ul (0.8-2.9); LYMPHOCYTES % 40.1 % (15.0-51.0); MEAN CORPUSCULAR HEMOGLOBIN 31.2 pg (29.0-33.0); MEAN CORPUSCULAR HGB CONC 32.1 g/dl (32.0-37.0); MEAN CORPUSCULAR VOLUME 97.3 fl (82.0-101.0); MEAN PLATELET VOLUME 11.7 fl (7.4-10.4); MONOCYTE # 0.6 10^3/ul (0.3-0.9); MONOCYTES % 8.8 % (0.0-11.0); NEUTROPHIL # 2.9 10^3/ul (1.6-7.5); NEUTROPHILS % 46.1 % (39.0-77.0); RED BLOOD COUNT 3.01 10^6/ul (4.20-5.40); RED CELL DISTRIBUTION WIDTH 16.7 % (11.5-14.5)
[2019-01-05 06:23] LABS: WHITE BLOOD COUNT 6.4 10^3/ul (4.8-10.8)
[2019-01-05] MEDS: LEVOTHYROXINE 100 MCG TAB PO (06:26)
[2019-01-05 06:43] LABS: POSITIVE DIFF @See below
[2019-01-05 06:44] LABS: PLATELET COUNT 66 10^3/UL (140-415)
[2019-01-05] MEDS: L ACIDOPHIL/B LACTIS/B LONGUM CAPSULE PO (08:39)
[2019-01-05] MEDS: CYANOCOBALAMIN 500 MCG TAB PO (08:40)
[2019-01-05] MEDS: RALOXIFENE 60 MG TAB PO (08:40)
[2019-01-05] MEDS: LISINOPRIL 5 MG TAB PO (08:40)
[2019-01-05] MEDS: ASPIRIN 81 MG TAB PO (08:41)
[2019-01-05] MEDS: PHENYTOIN (100 MG/4 ML) CUP PO ×2 (08:41→12:39)
[2019-01-05] MEDS: FUROSEMIDE 20 MG TAB PO (13:35)
== END 2019-01-05 15:10 | disposition home or self-care (01) | DRG 690 ==
LOC: TEL 23:26 → ICU 12-27 04:24 → TEL 12-30 00:33 → E/R 20:56 → 6WM 12-25 17:50
DX: N39.0 Urinary tract infection, site not specified (principal); R64 Cachexia; C34.91 Malignant neoplasm of unspecified part of right bronchus or lung; N17.9 Acute kidney failure, unspecified; C79.51 Secondary malignant neoplasm of bone; Z68.1 Body mass index [BMI] 19.9 or less, adult; G93.49 Other encephalopathy; I42.9 Cardiomyopathy, unspecified; R51 Headache; D32.0 Benign neoplasm of cerebral meninges; I25.10 Atherosclerotic heart disease of native coronary artery without angina pectoris; I25.2 Old myocardial infarction; Z95.810 Presence of automatic (implantable) cardiac defibrillator; R00.1 Bradycardia, unspecified; E87.5 Hyperkalemia; E86.0 Dehydration; H54.8 Legal blindness, as defined in USA; J44.9 Chronic obstructive pulmonary disease, unspecified; E03.9 Hypothyroidism, unspecified; Z98.51 Tubal ligation status; G40.909 Epilepsy, unspecified, not intractable, without status epilepticus; Z86.73 Personal history of transient ischemic attack (TIA), and cerebral infarction without residual deficits; I95.9 Hypotension, unspecified; D69.6 Thrombocytopenia, unspecified; Z86.018 Personal history of other benign neoplasm; Z98.890 Other specified postprocedural states; Z79.899 Other long term (current) drug therapy; B96.4 Proteus (mirabilis) (morganii) as the cause of diseases classified elsewhere; B96.20 Unspecified Escherichia coli [E. coli] as the cause of diseases classified elsewhere; I73.9 Peripheral vascular disease, unspecified; Z95.5 Presence of coronary angioplasty implant and graft; Z87.891 Personal history of nicotine dependence; E86.1 Hypovolemia; R63.6 Underweight
CPT/HCPCS: 36415; 70450; 71045; 76775; 80048; 80053; 80185; 81001; 82668; 82728; 82962; 83540; 83735; 84100; 84484; 85025; 85045; 85610; 85730; 86850; 86900; 86901; 87040-91; 87081; 87086; 93005; 96374; 96375; 99285-25

== ENCOUNTER 2019-03-05 16:53 | Emergency (ER) | payer BC ==
[2019-03-05] MEDS: ACETAMINOPHEN 325 MG TAB PO (17:56)
== END 2019-03-05 18:27 | disposition home or self-care (01) ==
LOC: E/R 16:53
DX: K62.89 Other specified diseases of anus and rectum (principal); K62.3 Rectal prolapse; Z79.82 Long term (current) use of aspirin
CPT/HCPCS: 99284

== ENCOUNTER 2019-04-18 11:45 | Inpatient (IN) | payer BC ==
[2019-04-18 13:08] LABS: ADD MAN DIFF? NO
[2019-04-18 13:10] LABS: BASOPHILS % 0.6 % (0.0-2.0); EOSINOPHILS # 0.1 10^3/ul (0.0-0.5); EOSINOPHILS % 1.9 % (0.0-7.0); HEMOGLOBIN 7.7 g/dl (12.0-16.0); LYMPHOCYTES # 1.8 10^3/ul (0.8-2.9); LYMPHOCYTES % 28.7 % (15.0-51.0); MEAN CORPUSCULAR HEMOGLOBIN 31.3 pg (29.0-33.0); MEAN CORPUSCULAR HGB CONC 30.8 g/dl (32.0-37.0); MEAN CORPUSCULAR VOLUME 101.6 fl (82.0-101.0); MEAN PLATELET VOLUME 11.6 fl (7.4-10.4); MONOCYTE # 0.7 10^3/ul (0.3-0.9); MONOCYTES % 10.7 % (0.0-11.0); NEUTROPHIL # 3.5 10^3/ul (1.6-7.5); NEUTROPHILS % 57.3 % (39.0-77.0); PLATELET COUNT 104 10^3/UL (140-415); RED BLOOD COUNT 2.46 10^6/ul (4.20-5.40); RED CELL DISTRIBUTION WIDTH 15.5 % (11.5-14.5)
[2019-04-18 13:10] LABS: WHITE BLOOD COUNT 6.2 10^3/ul (4.8-10.8)
[2019-04-18 13:30] LABS: ALANINE AMINOTRANSFERASE 43 IU/L (13-69); ALBUMIN 3.7 g/dl (3.3-4.9); ALBUMIN/GLOBULIN RATIO 1.02; ALKALINE PHOSPHATASE 135 IU/L (42-121); ANION GAP 12 (5-13); ASPARTATE AMINO TRANSFERASE 29 IU/L (15-46); BILIRUBIN,INDIRECT 0.1 mg/dl (0-1.1); BILIRUBIN,TOTAL 0.1 mg/dl (0.2-1.3); BLOOD UREA NITROGEN 59 mg/dl (7-20); CALCIUM 7.8 mg/dl (8.4-10.2); CARBON DIOXIDE 15 mmol/L (21-31); CHLORIDE 110 mmol/L (97-110); GLUCOSE 135 mg/dl (70-220); INR 1.19; LIPASE 504 U/L (23-300); PROTIME 15.2 Sec (11.9-14.9); PT RATIO 1.2; SODIUM 137 mmol/L (135-144); TOTAL PROTEIN 7.3 g/dl (6.1-8.1)
[2019-04-18 13:38] LABS: ADD UMIC YES; UR ASCORBIC ACID 40 mg/dL (NEGATIVE); UR BACTERIA FEW /HPF (NONE SEEN); UR BILIRUBIN (Dip) NEGATIVE (NEGATIVE); UR BLOOD (Dip) NEGATIVE (NEGATIVE); UR CLARITY CLOUDY (CLEAR); UR COLOR YELLOW (YELLOW); UR GLUCOSE (Dip) NEGATIVE (NEGATIVE); UR KETONES (Dip) NEGATIVE (NEGATIVE); UR LEUKOCYTE ESTERASE (Dip) 3+ Leu/ul (NEGATIVE); UR NITRITE (Dip) NEGATIVE (NEGATIVE); UR RBC 14 /HPF (0-5); UR SPECIFIC GRAVITY (Dip) 1.013 (1.003-1.030); UR TOTAL PROTEIN (Dip) 1+ mg/dl (NEGATIVE); UR UROBILINOGEN (Dip) NEGATIVE (NEGATIVE); UR WBC > 182 /HPF (0-5)
[2019-04-18 13:41] LABS: TROPONIN-I < 0.012 ng/ml (0.000-0.120)
[2019-04-18] MEDS: SOD CHLORIDE 0.9% 1,000 ML IV (13:42)
[2019-04-18] MEDS ORDERED: DEXTROSE 50% 50 ML SYRINGE IV (14:00)
[2019-04-18] MEDS: CA CHLORIDE 10% 10 ML SYRINGE IV (14:25)
[2019-04-18] MEDS: DEXTROSE 50% 50 ML SYRINGE IV (14:25)
[2019-04-18] MEDS: INSULIN REGULAR, HUMAN 100 UNIT/1 ML 3ML VIAL IVP (14:31)
[2019-04-18] MEDS: CEFTRIAXONE 1 GM/50 ML (PMX) 50 ML IVPB (14:35)
[2019-04-18 14:48] LABS: PARTIAL THROMBOPLASTIN TIME 78.2 Sec (23.0-35.0)
[2019-04-18] MEDS: HYDROCORTISONE 25 MG SUPP PR (15:59)
[2019-04-18] MEDS ORDERED: HARD FAT/PHENYLEPHRINE SUPP PR (21:00)
[2019-04-18] MEDS ORDERED: HYDROCORTISONE 2.5% 30 GM RECT CR PR (21:30)
[2019-04-18] MEDS: LEVETIRACETAM 500 MG TAB PO (22:29)
[2019-04-18] MEDS: DEXTROSE 5%-0.225% NACL 1,000 ML IV (22:29)
[2019-04-18] MEDS: traZODone 50 MG TAB PO (22:33)
[2019-04-18] MEDS: HYDROCORTISONE 2.5% 30 GM RECT CR PR (23:29)
[2019-04-19] MEDS: LEVOTHYROXINE 50 MCG TAB PO (06:41)
[2019-04-19 08:25] LABS: ADD MAN DIFF? NO
[2019-04-19 08:29] LABS: ABNORMAL IP MESSAGE 1; BASOPHILS % 0.3 % (0.0-2.0); EOSINOPHILS # 0.2 10^3/ul (0.0-0.5); EOSINOPHILS % 3.6 % (0.0-7.0); HEMATOCRIT 25.1 % (37.0-47.0); HEMOGLOBIN 7.5 g/dl (12.0-16.0); LYMPHOCYTES # 1.2 10^3/ul (0.8-2.9); LYMPHOCYTES % 18.5 % (15.0-51.0); MEAN CORPUSCULAR HEMOGLOBIN 30.4 pg (29.0-33.0); MEAN CORPUSCULAR HGB CONC 29.9 g/dl (32.0-37.0); MEAN CORPUSCULAR VOLUME 101.6 fl (82.0-101.0); MEAN PLATELET VOLUME 13.5 fl (7.4-10.4); MONOCYTE # 0.5 10^3/ul (0.3-0.9); MONOCYTES % 7.4 % (0.0-11.0); NEUTROPHIL # 4.4 10^3/ul (1.6-7.5); NEUTROPHILS % 69.6 % (39.0-77.0); PLATELET COUNT 68 10^3/UL (140-415); RED BLOOD COUNT 2.47 10^6/ul (4.20-5.40); RED CELL DISTRIBUTION WIDTH 15.3 % (11.5-14.5)
[2019-04-19 08:29] LABS: WHITE BLOOD COUNT 6.3 10^3/ul (4.8-10.8)
[2019-04-19 08:34] LABS: POSITIVE DIFF @See below
[2019-04-19] MEDS: PHENYTOIN (100 MG/4 ML) CUP PO ×2 (08:37→20:23)
[2019-04-19] MEDS: LEVETIRACETAM 500 MG TAB PO ×2 (08:37→20:24)
[2019-04-19] MEDS: HYDROCORTISONE 2.5% 30 GM RECT CR PR ×2 (08:38→20:24)
[2019-04-19 08:58] LABS: ALANINE AMINOTRANSFERASE 36 IU/L (13-69); ALBUMIN 3.2 g/dl (3.3-4.9); ALBUMIN/GLOBULIN RATIO 0.88; ALKALINE PHOSPHATASE 113 IU/L (42-121); ANION GAP 10 (5-13); ASPARTATE AMINO TRANSFERASE 29 IU/L (15-46); BILIRUBIN,INDIRECT 0.2 mg/dl (0-1.1); BILIRUBIN,TOTAL 0.2 mg/dl (0.2-1.3); BLOOD UREA NITROGEN 50 mg/dl (7-20); CALCIUM 8.3 mg/dl (8.4-10.2); CARBON DIOXIDE 15 mmol/L (21-31); CHLORIDE 111 mmol/L (97-110); CREATININE 2.02 mg/dl (0.44-1.00); GLUCOSE 83 mg/dl (70-220); POTASSIUM 5.7 mmol/L (3.5-5.1); SODIUM 136 mmol/L (135-144); TOTAL PROTEIN 6.8 g/dl (6.1-8.1)
[2019-04-19 10:49] LABS: ANISOCYTOSIS 1+ (0-0); BAND NEUTROPHILS % (M) 1 % (0-4); BASOPHILS % (M) 1 % (0-2); EOSINOPHILS % (M) 7 % (0-7); GIANT THROMBO% (M) 2 % (0-0); LYMPHOCYTES #M 1.4 10^3/ul (0.8-2.9); LYMPHOCYTES % (M) 23 % (15-51); MONOCYTE #M 0.3 10^3/ul (0.3-0.9); MONOCYTES % (M) 5 % (0-11); PLATELET ESTIMATE DECREASED; SEG NEUT #M 3.9 10^3/ul (1.6-7.5); SEGMENTED NEUTROPHILS (M) % 62 % (39-77); SMUDGE%M 50 % (0-0)
[2019-04-19] MEDS: DEXTROSE 5%-0.225% NACL 1,000 ML IV ×3 (11:27→21:05)
[2019-04-19] MEDS: NA POLYST SULFON 15 GM/60 ML BTL PO (12:10)
[2019-04-19] MEDS: CEFTRIAXONE 1 GM/50 ML (PMX) 50 ML IVPB (14:52)
[2019-04-19 15:56] LABS: LACTIC ACID 1.3 mmol/L (0.5-2.0)
[2019-04-20] MEDS: LEVOTHYROXINE 50 MCG TAB PO (06:38)
[2019-04-20] MEDS: DEXTROSE 5%-0.225% NACL 1,000 ML IV ×2 (06:44→17:53)
[2019-04-20 06:47] LABS: ADD MAN DIFF? NO
[2019-04-20 06:51] LABS: BASOPHILS % 0.3 % (0.0-2.0); EOSINOPHILS # 0.3 10^3/ul (0.0-0.5); HEMATOCRIT 24.3 % (37.0-47.0); LYMPHOCYTES # 1.3 10^3/ul (0.8-2.9); MEAN CORPUSCULAR HEMOGLOBIN 32.1 pg (29.0-33.0); MEAN CORPUSCULAR HGB CONC 32.9 g/dl (32.0-37.0); MEAN CORPUSCULAR VOLUME 97.6 fl (82.0-101.0); MEAN PLATELET VOLUME 12.5 fl (7.4-10.4); MONOCYTE # 0.6 10^3/ul (0.3-0.9); MONOCYTES % 9.2 % (0.0-11.0); NEUTROPHIL # 4.4 10^3/ul (1.6-7.5); NEUTROPHILS % 65.9 % (39.0-77.0); PLATELET COUNT 113 10^3/UL (140-415); RED BLOOD COUNT 2.49 10^6/ul (4.20-5.40); RED CELL DISTRIBUTION WIDTH 15.2 % (11.5-14.5)
[2019-04-20 06:51] LABS: WHITE BLOOD COUNT 6.7 10^3/ul (4.8-10.8)
[2019-04-20 07:08] LABS: ANION GAP 11 (5-13); BLOOD UREA NITROGEN 38 mg/dl (7-20); CALCIUM 7.9 mg/dl (8.4-10.2); CARBON DIOXIDE 13 mmol/L (21-31); CHLORIDE 110 mmol/L (97-110); CREATININE 1.67 mg/dl (0.44-1.00); GLUCOSE 77 mg/dl (70-220); MAGNESIUM 1.6 mg/dl (1.7-2.5); POTASSIUM 5.1 mmol/L (3.5-5.1); SODIUM 134 mmol/L (135-144)
[2019-04-20 07:23] LABS: T4 (THYROXINE) 4.4 ug/dl (5.5-11.0)
[2019-04-20] MEDS: LEVETIRACETAM 500 MG TAB PO ×2 (08:44→21:58)
[2019-04-20] MEDS: PHENYTOIN (100 MG/4 ML) CUP PO ×2 (08:45→21:58)
[2019-04-20] MEDS: HYDROCORTISONE 2.5% 30 GM RECT CR PR ×2 (08:45→21:59)
[2019-04-20] MEDS: MAGNESIUM SULFATE 2 GM/50 ML 50 ML IVPB ×2 (13:33→15:05)
[2019-04-20] MEDS: CEFTRIAXONE 1 GM/50 ML (PMX) 50 ML IVPB (13:38)
[2019-04-20] MEDS: NA POLYST SULFON 15 GM/60 ML BTL PO (15:05)
[2019-04-20] MEDS ORDERED: ACETAMINOPHEN 325 MG TAB PO (21:00)
[2019-04-21] MEDS: DEXTROSE 5%-0.225% NACL 1,000 ML IV ×3 (03:23→21:52)
[2019-04-21] MEDS: LEVOTHYROXINE 100 MCG TAB PO (05:49)
[2019-04-21 06:11] LABS: ADD MAN DIFF? NO
[2019-04-21 06:16] LABS: ABNORMAL IP MESSAGE 1; BASOPHILS % 0.3 % (0.0-2.0); EOSINOPHILS # 0.2 10^3/ul (0.0-0.5); EOSINOPHILS % 3.1 % (0.0-7.0); HEMATOCRIT 22.8 % (37.0-47.0); HEMOGLOBIN 7.2 g/dl (12.0-16.0); LYMPHOCYTES # 1.3 10^3/ul (0.8-2.9); LYMPHOCYTES % 18.5 % (15.0-51.0); MEAN CORPUSCULAR HEMOGLOBIN 30.9 pg (29.0-33.0); MEAN CORPUSCULAR HGB CONC 31.6 g/dl (32.0-37.0); MEAN CORPUSCULAR VOLUME 97.9 fl (82.0-101.0); MEAN PLATELET VOLUME 12.8 fl (7.4-10.4); MONOCYTE # 0.8 10^3/ul (0.3-0.9); MONOCYTES % 10.6 % (0.0-11.0); NEUTROPHIL # 4.8 10^3/ul (1.6-7.5); NEUTROPHILS % 66.8 % (39.0-77.0); PLATELET COUNT 89 10^3/UL (140-415); RED BLOOD COUNT 2.33 10^6/ul (4.20-5.40); RED CELL DISTRIBUTION WIDTH 15.2 % (11.5-14.5)
[2019-04-21 06:16] LABS: WHITE BLOOD COUNT 7.2 10^3/ul (4.8-10.8)
[2019-04-21 06:28] LABS: POSITIVE DIFF @See below
[2019-04-21 06:46] LABS: ANION GAP 10 (5-13); BLOOD UREA NITROGEN 29 mg/dl (7-20); CARBON DIOXIDE 14 mmol/L (21-31); CHLORIDE 109 mmol/L (97-110); CREATININE 1.39 mg/dl (0.44-1.00); GLUCOSE 101 mg/dl (70-220); POTASSIUM 4.5 mmol/L (3.5-5.1); SODIUM 133 mmol/L (135-144)
[2019-04-21] MEDS: morphine 2 MG INJ IV (06:58)
[2019-04-21] MEDS: PHENYTOIN (100 MG/4 ML) CUP PO ×2 (08:48→20:40)
[2019-04-21] MEDS: HYDROCORTISONE 2.5% 30 GM RECT CR PR ×2 (08:48→20:43)
[2019-04-21] MEDS: LEVETIRACETAM 500 MG TAB PO ×2 (08:48→20:40)
[2019-04-21] MEDS: CEFTRIAXONE 1 GM/50 ML (PMX) 50 ML IVPB (13:55)
[2019-04-21] MEDS: FUROSEMIDE 20 MG INJ IV (18:04)
[2019-04-21 19:46] LABS: IRON 27 ug/dl (35-150)
[2019-04-21 19:55] LABS: % IRON SATURATION 15 % SAT (22-52); TOTAL IRON BINDING CAPACITY 185 ug/dl (241-421)
[2019-04-21 20:22] LABS: FERRITIN 90.8 ng/ml (11.1-264.0)
[2019-04-21 21:45] LABS: IMMEDIATE SPIN CROSSMATCH 1 2
[2019-04-22 06:33] LABS: ADD MAN DIFF? NO
[2019-04-22] MEDS: LEVOTHYROXINE 100 MCG TAB PO (06:36)
[2019-04-22 06:37] LABS: WHITE BLOOD COUNT 6.5 10^3/ul (4.8-10.8)
[2019-04-22 06:37] LABS: ABNORMAL IP MESSAGE 1; BASOPHILS % 0.3 % (0.0-2.0); EOSINOPHILS # 0.2 10^3/ul (0.0-0.5); EOSINOPHILS % 2.5 % (0.0-7.0); HEMATOCRIT 31.2 % (37.0-47.0); LYMPHOCYTES # 0.9 10^3/ul (0.8-2.9); LYMPHOCYTES % 14.3 % (15.0-51.0); MEAN CORPUSCULAR HEMOGLOBIN 30.6 pg (29.0-33.0); MEAN CORPUSCULAR HGB CONC 32.1 g/dl (32.0-37.0); MEAN CORPUSCULAR VOLUME 95.4 fl (82.0-101.0); MEAN PLATELET VOLUME 12.5 fl (7.4-10.4); MONOCYTE # 0.6 10^3/ul (0.3-0.9); MONOCYTES % 9.7 % (0.0-11.0); NEUTROPHIL # 4.7 10^3/ul (1.6-7.5); NEUTROPHILS % 72.4 % (39.0-77.0); PLATELET COUNT 90 10^3/UL (140-415); RED BLOOD COUNT 3.27 10^6/ul (4.20-5.40); RED CELL DISTRIBUTION WIDTH 15.8 % (11.5-14.5)
[2019-04-22 06:56] LABS: POSITIVE DIFF @See below
[2019-04-22 07:01] LABS: PARTIAL THROMBOPLASTIN TIME 45.8 Sec (23.0-35.0)
[2019-04-22 07:02] LABS: ANION GAP 9 (5-13); BLOOD UREA NITROGEN 28 mg/dl (7-20); CALCIUM 7.1 mg/dl (8.4-10.2); CARBON DIOXIDE 17 mmol/L (21-31); CHLORIDE 107 mmol/L (97-110); CREATININE 1.42 mg/dl (0.44-1.00); GLUCOSE 83 mg/dl (70-220); MAGNESIUM 1.9 mg/dl (1.7-2.5); POTASSIUM 3.7 mmol/L (3.5-5.1); SODIUM 133 mmol/L (135-144)
[2019-04-22] MEDS: PHENYTOIN (100 MG/4 ML) CUP PO ×2 (08:19→20:37)
[2019-04-22] MEDS: LEVETIRACETAM 500 MG TAB PO ×2 (08:19→20:37)
[2019-04-22] MEDS: HYDROCORTISONE 2.5% 30 GM RECT CR PR ×2 (08:20→20:38)
[2019-04-22] MEDS: DEXTROSE 5%-0.225% NACL 1,000 ML IV (11:16)
[2019-04-22 11:21] LABS: 50/50 PTT IMMED 45.1 Sec
[2019-04-22] MEDS: CEFTRIAXONE 1 GM/50 ML (PMX) 50 ML IVPB (13:50)
[2019-04-22] MEDS ORDERED: BALSAM PERU/CASTOR OIL 60 GM TUBE TOP ×2 (14:00→21:00)
[2019-04-22] MEDS: MAGNESIUM SULFATE 1 GM/D5W 100 ML IVPB (18:37)
[2019-04-22] MEDS: BALSAM PERU/CASTOR OIL 60 GM TUBE TOP (22:10)
[2019-04-23] MEDS: DEXTROSE 5%-0.225% NACL 1,000 ML IV ×3 (00:32→21:30)
[2019-04-23] MEDS: LEVOTHYROXINE 100 MCG TAB PO (06:03)
[2019-04-23 06:53] LABS: ADD MAN DIFF? NO
[2019-04-23 06:58] LABS: WHITE BLOOD COUNT 6.1 10^3/ul (4.8-10.8)
[2019-04-23 06:58] LABS: ABNORMAL IP MESSAGE 1; BASOPHILS % 0.3 % (0.0-2.0); EOSINOPHILS # 0.2 10^3/ul (0.0-0.5); EOSINOPHILS % 3.3 % (0.0-7.0); HEMATOCRIT 32.1 % (37.0-47.0); HEMOGLOBIN 10.5 g/dl (12.0-16.0); LYMPHOCYTES # 1.1 10^3/ul (0.8-2.9); LYMPHOCYTES % 17.9 % (15.0-51.0); MEAN CORPUSCULAR HEMOGLOBIN 31.2 pg (29.0-33.0); MEAN CORPUSCULAR HGB CONC 32.7 g/dl (32.0-37.0); MEAN CORPUSCULAR VOLUME 95.3 fl (82.0-101.0); MEAN PLATELET VOLUME 12.9 fl (7.4-10.4); MONOCYTE # 0.7 10^3/ul (0.3-0.9); MONOCYTES % 11.5 % (0.0-11.0); RED BLOOD COUNT 3.37 10^6/ul (4.20-5.40); RED CELL DISTRIBUTION WIDTH 15.7 % (11.5-14.5)
[2019-04-23 07:04] LABS: PLATELET COUNT 72 10^3/UL (140-415); POSITIVE DIFF @See below
[2019-04-23 07:40] LABS: ANION GAP 8 (5-13); BLOOD UREA NITROGEN 23 mg/dl (7-20); CARBON DIOXIDE 17 mmol/L (21-31); CHLORIDE 107 mmol/L (97-110); CREATININE 1.25 mg/dl (0.44-1.00); GLUCOSE 81 mg/dl (70-220); POTASSIUM 3.6 mmol/L (3.5-5.1); SODIUM 132 mmol/L (135-144)
[2019-04-23] MEDS: PHENYTOIN (100 MG/4 ML) CUP PO ×2 (09:25→21:29)
[2019-04-23] MEDS: HYDROCORTISONE 2.5% 30 GM RECT CR PR ×2 (09:25→21:29)
[2019-04-23] MEDS: LEVETIRACETAM 500 MG TAB PO ×2 (09:25→21:29)
[2019-04-23] MEDS: BALSAM PERU/CASTOR OIL 60 GM TUBE TOP ×2 (09:26→21:29)
[2019-04-23] MEDS: CEFTRIAXONE 1 GM/50 ML (PMX) 50 ML IVPB (15:49)
[2019-04-23] MEDS: MAGNESIUM CITRATE 300 ML BTL PO (17:46)
[2019-04-24] MEDS: LEVOTHYROXINE 100 MCG TAB PO (05:58)
[2019-04-24 08:28] LABS: ADD MAN DIFF? NO
[2019-04-24 08:41] LABS: BASOPHILS % 0.3 % (0.0-2.0); EOSINOPHILS # 0.1 10^3/ul (0.0-0.5); HEMATOCRIT 32.1 % (37.0-47.0); HEMOGLOBIN 10.2 g/dl (12.0-16.0); LYMPHOCYTES # 1.2 10^3/ul (0.8-2.9); LYMPHOCYTES % 18.9 % (15.0-51.0); MEAN CORPUSCULAR HEMOGLOBIN 30.7 pg (29.0-33.0); MEAN CORPUSCULAR HGB CONC 31.8 g/dl (32.0-37.0); MEAN CORPUSCULAR VOLUME 96.7 fl (82.0-101.0); MONOCYTE # 0.8 10^3/ul (0.3-0.9); MONOCYTES % 12.2 % (0.0-11.0); NEUTROPHILS % 65.9 % (39.0-77.0); PLATELET COUNT 102 10^3/UL (140-415); RED BLOOD COUNT 3.32 10^6/ul (4.20-5.40); RED CELL DISTRIBUTION WIDTH 15.5 % (11.5-14.5)
[2019-04-24 08:41] LABS: WHITE BLOOD COUNT 6.1 10^3/ul (4.8-10.8)
[2019-04-24] MEDS: LEVETIRACETAM 500 MG TAB PO ×2 (08:52→20:42)
[2019-04-24] MEDS: BALSAM PERU/CASTOR OIL 60 GM TUBE TOP ×2 (08:52→20:43)
[2019-04-24] MEDS: HYDROCORTISONE 2.5% 30 GM RECT CR PR ×2 (08:53→20:42)
[2019-04-24] MEDS: PHENYTOIN (100 MG/4 ML) CUP PO ×2 (08:54→20:42)
[2019-04-24 09:00] LABS: ANION GAP 7 (5-13); BLOOD UREA NITROGEN 21 mg/dl (7-20); CALCIUM 7.2 mg/dl (8.4-10.2); CARBON DIOXIDE 20 mmol/L (21-31); CHLORIDE 107 mmol/L (97-110); GLUCOSE 100 mg/dl (70-220); POTASSIUM 4.2 mmol/L (3.5-5.1); SODIUM 134 mmol/L (135-144)
[2019-04-24 09:08] LABS: T4 (THYROXINE) 5.1 ug/dl (5.5-11.0)
[2019-04-24 09:26] LABS: OCCULT BLOOD STOOL NEGATIVE (NEGATIVE)
[2019-04-24] MEDS: CEFTRIAXONE 1 GM/50 ML (PMX) 50 ML IVPB (14:41)
[2019-04-24] MEDS: DEXTROSE 5%-0.225% NACL 1,000 ML IV (17:44)
[2019-04-25] MEDS: LEVOTHYROXINE 100 MCG TAB PO (06:39)
[2019-04-25] MEDS: DEXTROSE 5%-0.225% NACL 1,000 ML IV ×2 (06:42→21:43)
[2019-04-25] MEDS: LEVETIRACETAM 500 MG TAB PO ×2 (09:11→21:43)
[2019-04-25] MEDS: PHENYTOIN (100 MG/4 ML) CUP PO ×2 (09:11→21:43)
[2019-04-25] MEDS: HYDROCORTISONE 2.5% 30 GM RECT CR PR ×2 (09:12→21:44)
[2019-04-25] MEDS: BALSAM PERU/CASTOR OIL 60 GM TUBE TOP ×2 (09:13→21:45)
[2019-04-25] MEDS: CEFTRIAXONE 1 GM/50 ML (PMX) 50 ML IVPB (13:37)
[2019-04-25] MEDS: METOPROLOL (XL) 25 MG TAB PO (15:55)
[2019-04-26] MEDS: LEVOTHYROXINE 100 MCG TAB PO (05:39)
[2019-04-26] MEDS: PHENYTOIN (100 MG/4 ML) CUP PO ×2 (08:43→21:15)
[2019-04-26] MEDS: METOPROLOL (XL) 25 MG TAB PO (08:45)
[2019-04-26] MEDS: LEVETIRACETAM 500 MG TAB PO ×2 (08:45→21:14)
[2019-04-26] MEDS: HYDROCORTISONE 2.5% 30 GM RECT CR PR ×2 (08:45→21:16)
[2019-04-26] MEDS: BALSAM PERU/CASTOR OIL 60 GM TUBE TOP ×2 (08:45→21:15)
[2019-04-26] MEDS: DEXTROSE 5%-0.225% NACL 1,000 ML IV ×2 (10:34→22:50)
[2019-04-26] MEDS: CEFTRIAXONE 1 GM/50 ML (PMX) 50 ML IVPB (13:11)
[2019-04-27] MEDS: DEXTROSE 5%-0.225% NACL 1,000 ML IV (05:29)
[2019-04-27] MEDS: LEVOTHYROXINE 100 MCG TAB PO (06:21)
[2019-04-27 07:23] LABS: ADD MAN DIFF? NO
[2019-04-27 07:28] LABS: ABNORMAL IP MESSAGE 1; BASOPHILS % 0.7 % (0.0-2.0); EOSINOPHILS # 0.2 10^3/ul (0.0-0.5); EOSINOPHILS % 2.6 % (0.0-7.0); HEMATOCRIT 34.5 % (37.0-47.0); HEMOGLOBIN 11.2 g/dl (12.0-16.0); LYMPHOCYTES # 1.2 10^3/ul (0.8-2.9); LYMPHOCYTES % 21.8 % (15.0-51.0); MEAN CORPUSCULAR HEMOGLOBIN 31.3 pg (29.0-33.0); MEAN CORPUSCULAR HGB CONC 32.5 g/dl (32.0-37.0); MEAN CORPUSCULAR VOLUME 96.4 fl (82.0-101.0); MONOCYTE # 0.8 10^3/ul (0.3-0.9); MONOCYTES % 13.2 % (0.0-11.0); NEUTROPHIL # 3.5 10^3/ul (1.6-7.5); NEUTROPHILS % 61.2 % (39.0-77.0); RED BLOOD COUNT 3.58 10^6/ul (4.20-5.40); RED CELL DISTRIBUTION WIDTH 15.3 % (11.5-14.5)
[2019-04-27 07:28] LABS: WHITE BLOOD COUNT 5.7 10^3/ul (4.8-10.8)
[2019-04-27 07:33] LABS: PLATELET COUNT 70 10^3/UL (140-415); POSITIVE DIFF @See below
[2019-04-27 07:57] LABS: ANION GAP 8 (5-13); BLOOD UREA NITROGEN 20 mg/dl (7-20); CALCIUM 7.3 mg/dl (8.4-10.2); CARBON DIOXIDE 20 mmol/L (21-31); CHLORIDE 103 mmol/L (97-110); CREATININE 1.01 mg/dl (0.44-1.00); GLUCOSE 90 mg/dl (70-220); MAGNESIUM 1.8 mg/dl (1.7-2.5); POTASSIUM 4.8 mmol/L (3.5-5.1); SODIUM 131 mmol/L (135-144)
[2019-04-27] MEDS: PHENYTOIN (100 MG/4 ML) CUP PO ×2 (09:25→21:49)
[2019-04-27] MEDS: METOPROLOL (XL) 25 MG TAB PO (09:26)
[2019-04-27] MEDS: LEVETIRACETAM 500 MG TAB PO ×2 (09:26→20:45)
[2019-04-27] MEDS: HYDROCORTISONE 2.5% 30 GM RECT CR PR ×2 (09:30→21:50)
[2019-04-27] MEDS: BALSAM PERU/CASTOR OIL 60 GM TUBE TOP ×2 (09:30→21:50)
[2019-04-27] MEDS: CEFTRIAXONE 1 GM/50 ML (PMX) 50 ML IVPB (14:35)
[2019-04-28] MEDS: LEVOTHYROXINE 100 MCG TAB PO (06:08)
[2019-04-28] MEDS: PHENYTOIN (100 MG/4 ML) CUP PO ×2 (08:21→20:45)
[2019-04-28] MEDS: LEVETIRACETAM 500 MG TAB PO ×2 (08:21→20:46)
[2019-04-28] MEDS: BALSAM PERU/CASTOR OIL 60 GM TUBE TOP ×2 (08:22→20:46)
[2019-04-28] MEDS: HYDROCORTISONE 2.5% 30 GM RECT CR PR ×2 (08:22→20:47)
[2019-04-28] MEDS: METOPROLOL (XL) 25 MG TAB PO (08:22)
[2019-04-28] MEDS: CEFTRIAXONE 1 GM/50 ML (PMX) 50 ML IVPB (13:37)
[2019-04-28 15:29] LABS: ADD MAN DIFF? NO
[2019-04-28 15:33] LABS: BASOPHILS % 0.6 % (0.0-2.0); EOSINOPHILS # 0.1 10^3/ul (0.0-0.5); EOSINOPHILS % 2.6 % (0.0-7.0); HEMATOCRIT 32.2 % (37.0-47.0); HEMOGLOBIN 10.3 g/dl (12.0-16.0); LYMPHOCYTES # 1.2 10^3/ul (0.8-2.9); LYMPHOCYTES % 24.2 % (15.0-51.0); MEAN CORPUSCULAR HEMOGLOBIN 30.5 pg (29.0-33.0); MEAN CORPUSCULAR VOLUME 95.3 fl (82.0-101.0); MEAN PLATELET VOLUME 12.4 fl (7.4-10.4); MONOCYTE # 0.6 10^3/ul (0.3-0.9); NEUTROPHIL # 2.9 10^3/ul (1.6-7.5); PLATELET COUNT 112 10^3/UL (140-415); RED BLOOD COUNT 3.38 10^6/ul (4.20-5.40); RED CELL DISTRIBUTION WIDTH 15.4 % (11.5-14.5)
[2019-04-28 15:33] LABS: WHITE BLOOD COUNT 4.9 10^3/ul (4.8-10.8)
[2019-04-28 16:01] LABS: ANION GAP 7 (5-13); BLOOD UREA NITROGEN 23 mg/dl (7-20); CALCIUM 7.4 mg/dl (8.4-10.2); CARBON DIOXIDE 22 mmol/L (21-31); CHLORIDE 103 mmol/L (97-110); CREATININE 1.04 mg/dl (0.44-1.00); GLUCOSE 91 mg/dl (70-220); POTASSIUM 4.9 mmol/L (3.5-5.1); SODIUM 132 mmol/L (135-144)
[2019-04-29] MEDS: LEVOTHYROXINE 100 MCG TAB PO (06:40)
[2019-04-29] MEDS: METOPROLOL (XL) 25 MG TAB PO (09:00)
[2019-04-29] MEDS: LEVETIRACETAM 500 MG TAB PO ×2 (09:24→21:45)
[2019-04-29] MEDS: PHENYTOIN (100 MG/4 ML) CUP PO ×2 (09:24→21:44)
[2019-04-29] MEDS: BALSAM PERU/CASTOR OIL 60 GM TUBE TOP ×2 (09:25→21:45)
[2019-04-29] MEDS: HYDROCORTISONE 2.5% 30 GM RECT CR PR ×2 (09:27→21:45)
[2019-04-29] MEDS: VANCOMYCIN 1 GM (PMX) 250 ML IVPB (15:09)
[2019-04-30] MEDS: LEVOTHYROXINE 100 MCG TAB PO (05:42)
[2019-04-30 08:10] LABS: ADD MAN DIFF? NO
[2019-04-30 08:17] LABS: BASOPHIL # 0.1 10^3/ul (0.0-0.1); BASOPHILS % 0.8 % (0.0-2.0); EOSINOPHILS # 0.2 10^3/ul (0.0-0.5); EOSINOPHILS % 3.5 % (0.0-7.0); HEMATOCRIT 33.5 % (37.0-47.0); HEMOGLOBIN 10.5 g/dl (12.0-16.0); LYMPHOCYTES # 1.1 10^3/ul (0.8-2.9); MEAN CORPUSCULAR HEMOGLOBIN 30.5 pg (29.0-33.0); MEAN CORPUSCULAR HGB CONC 31.3 g/dl (32.0-37.0); MEAN CORPUSCULAR VOLUME 97.4 fl (82.0-101.0); MEAN PLATELET VOLUME 12.8 fl (7.4-10.4); MONOCYTE # 0.6 10^3/ul (0.3-0.9); MONOCYTES % 9.1 % (0.0-11.0); NEUTROPHIL # 4.6 10^3/ul (1.6-7.5); NEUTROPHILS % 69.7 % (39.0-77.0); PLATELET COUNT 105 10^3/UL (140-415); RED BLOOD COUNT 3.44 10^6/ul (4.20-5.40); RED CELL DISTRIBUTION WIDTH 15.5 % (11.5-14.5)
[2019-04-30 08:17] LABS: WHITE BLOOD COUNT 6.6 10^3/ul (4.8-10.8)
[2019-04-30 08:57] LABS: ANION GAP 7 (5-13); BLOOD UREA NITROGEN 26 mg/dl (7-20); CALCIUM 7.6 mg/dl (8.4-10.2); CARBON DIOXIDE 22 mmol/L (21-31); CHLORIDE 106 mmol/L (97-110); CREATININE 1.11 mg/dl (0.44-1.00); GLUCOSE 91 mg/dl (70-220); POTASSIUM 4.8 mmol/L (3.5-5.1); SODIUM 135 mmol/L (135-144)
[2019-04-30 09:15] LABS: URIC ACID 4.7 mg/dl (3.1-7.9)
[2019-04-30] MEDS: PHENYTOIN (100 MG/4 ML) CUP PO ×2 (09:27→21:09)
[2019-04-30] MEDS: LEVETIRACETAM 500 MG TAB PO ×2 (09:27→21:09)
[2019-04-30] MEDS: HYDROCORTISONE 2.5% 30 GM RECT CR PR ×2 (09:28→21:10)
[2019-04-30] MEDS: METOPROLOL (XL) 25 MG TAB PO (09:28)
[2019-04-30] MEDS: MUPIROCIN 2% 22 GM OINT TOP (09:28)
[2019-04-30] MEDS: BALSAM PERU/CASTOR OIL 60 GM TUBE TOP ×2 (09:29→21:11)
[2019-04-30] MEDS: CEFAZOLIN 1 GM/50 ML (PMX) 50 ML IVPB ×2 (16:02→21:09)
[2019-05-01] MEDS: LEVOTHYROXINE 100 MCG TAB PO (06:33)
[2019-05-01] MEDS: PHENYTOIN (100 MG/4 ML) CUP PO ×2 (08:02→20:47)
[2019-05-01] MEDS: LEVETIRACETAM 500 MG TAB PO ×2 (08:02→20:47)
[2019-05-01] MEDS: METOPROLOL (XL) 25 MG TAB PO (08:02)
[2019-05-01] MEDS: MUPIROCIN 2% 22 GM OINT TOP (08:02)
[2019-05-01] MEDS: CEFAZOLIN 1 GM/50 ML (PMX) 50 ML IVPB ×2 (08:02→20:47)
[2019-05-01] MEDS: HYDROCORTISONE 2.5% 30 GM RECT CR PR ×2 (08:03→20:48)
[2019-05-01] MEDS: BALSAM PERU/CASTOR OIL 60 GM TUBE TOP ×2 (08:04→20:48)
[2019-05-02] MEDS: LEVOTHYROXINE 100 MCG TAB PO (06:16)
[2019-05-02 07:06] LABS: T4 (THYROXINE) 6.1 ug/dl (5.5-11.0)
[2019-05-02] MEDS: PHENYTOIN (100 MG/4 ML) CUP PO ×2 (07:25→20:15)
[2019-05-02] MEDS: LEVETIRACETAM 500 MG TAB PO ×2 (07:25→20:15)
[2019-05-02] MEDS: METOPROLOL (XL) 25 MG TAB PO (07:25)
[2019-05-02] MEDS: MUPIROCIN 2% 22 GM OINT TOP (07:26)
[2019-05-02] MEDS: CEFAZOLIN 1 GM/50 ML (PMX) 50 ML IVPB ×2 (07:26→20:15)
[2019-05-02] MEDS: HYDROCORTISONE 2.5% 30 GM RECT CR PR ×2 (07:27→20:16)
[2019-05-02] MEDS: BALSAM PERU/CASTOR OIL 60 GM TUBE TOP ×2 (07:27→20:17)
[2019-05-03] MEDS: LEVOTHYROXINE 100 MCG TAB PO (06:22)
[2019-05-03] MEDS: LEVETIRACETAM 500 MG TAB PO (08:13)
[2019-05-03] MEDS: CEFAZOLIN 1 GM/50 ML (PMX) 50 ML IVPB (08:13)
[2019-05-03] MEDS: PHENYTOIN (100 MG/4 ML) CUP PO (08:14)
[2019-05-03] MEDS: MUPIROCIN 2% 22 GM OINT TOP (08:14)
[2019-05-03] MEDS: BALSAM PERU/CASTOR OIL 60 GM TUBE TOP (08:14)
[2019-05-03] MEDS: HYDROCORTISONE 2.5% 30 GM RECT CR PR (08:14)
[2019-05-03] MEDS: METOPROLOL (XL) 25 MG TAB PO (08:14)
[2019-05-03] MEDS: VANCOMYCIN 1 GM (PMX) 250 ML IVPB (14:16)
== END 2019-05-03 18:32 | disposition home or self-care (01) | DRG 683 ==
LOC: TEL 04-27 17:15 → E/R 11:45 → TEL 14:16
PROC: 30233N1 Transfusion of Nonautologous Red Blood Cells into Peripheral Vein, Percutaneous Approach (ICD-10-PCS; principal; 2019-04-21)
DX: N17.9 Acute kidney failure, unspecified (principal); N39.0 Urinary tract infection, site not specified; G93.40 Encephalopathy, unspecified; I42.9 Cardiomyopathy, unspecified; C79.51 Secondary malignant neoplasm of bone; C79.89 Secondary malignant neoplasm of other specified sites; E86.0 Dehydration; K62.3 Rectal prolapse; E87.5 Hyperkalemia; I25.10 Atherosclerotic heart disease of native coronary artery without angina pectoris; Z98.61 Coronary angioplasty status; Z95.810 Presence of automatic (implantable) cardiac defibrillator; E03.9 Hypothyroidism, unspecified; H54.8 Legal blindness, as defined in USA; I73.9 Peripheral vascular disease, unspecified; G40.909 Epilepsy, unspecified, not intractable, without status epilepticus; I11.0 Hypertensive heart disease with heart failure; I50.9 Heart failure, unspecified; Z87.891 Personal history of nicotine dependence; E83.42 Hypomagnesemia; Z85.118 Personal history of other malignant neoplasm of bronchus and lung; Z86.011 Personal history of benign neoplasm of the brain; L03.031 Cellulitis of right toe; L97.519 Non-pressure chronic ulcer of other part of right foot with unspecified severity; I44.0 Atrioventricular block, first degree; I25.2 Old myocardial infarction
CPT/HCPCS: 36415; 36430; 71045; 71250; 73620; 80048; 80053; 80185; 81001; 82270; 82728; 82962; 83540; 83605; 83690; 83735; 84436; 84443; 84484; 84560; 85025; 85335; 85610; 85730; 86850; 86900; 86901; 86920; 87040-91; 87086; 93005; 99285-25